=== PATIENT | female | born 1940 | race Caucasian/White ===

== ENCOUNTER → 2017-11-10 | Outpatient (CLI) | payer MEDICARE ==
[2017-11-10 13:17] LABS: Hemoglobin 12.3 g/dL (12.0-16.0); Mean Corpuscular HGB CONC 33.2 g/dL (32.0-36.0); Mean Corpuscular Hemoglobin 28.2 pg (27.0-31.0); Mean Corpuscular Volume 84.9 fl (81.0-99.0); Mean Platelet Volume 8.2 fL (7.4-10.4); Platelet Count 186 thou/uL (130-400); RBC Distribution Width 15.3 % (11.5-14.5); Red Blood Cell (RBC) Count 4.38 mill/uL (4.20-5.40); White Blood Cell (WBC) Count 12.1 thou/uL (4.8-10.8)
[2017-11-10 13:20] LABS: INR-International Normal Ratio 1.1; PTT 26.7 SEC (22.9-36.1); Prothrombin Time 13.9 SEC (12.0-14.7)
[2017-11-10 13:39] LABS: ALT (SGPT) 17 U/L (8-55); AST (SGOT) 23 U/L (5-34); Albumin 4.2 g/dL (3.4-4.8); Alkaline Phosphatase 48 U/L (40-150); Anion Gap 11 mmol/L (10-20); BUN (Urea Nitrogen) 14 mg/dL (9.8-20.1); Bilirubin, Total 0.4 mg/dL (0.2-1.2); Calc. Creatinine Clearance 0 mL/min (70-130); Calcium 9.5 mg/dL (7.8-10.44); Carbon Dioxide 24 mmol/L (23-31); Chloride 107 mmol/L (98-107); Estimated GFR-MDRD 73; Globulin 2.5 g/dL (2.4-3.5); Glucose 196 mg/dL (83-110); Potassium 3.8 mmol/L (3.5-5.1); Protein, Total 6.7 g/dL (6.0-8.3); Sodium 138 mmol/L (136-145)
== END ==
LOC: LABBT 13:00
PROVIDERS: ATTEND Internal Medicine Cardiovascular Disease
DX: Z01.818 Encounter for other preprocedural examination (principal); I42.0 Dilated cardiomyopathy

== ENCOUNTER 2017-11-18 05:29 | Inpatient (IN) | payer MEDICARE ==
[2017-11-18] MEDS ORDERED: Lidocaine 1% (PF) 30 ML VIAL ONE (06:36)
[2017-11-18] MEDS ORDERED: Midazolam HCl 2 mg/2 ml Vial ONE (07:28)
[2017-11-18] MEDS ORDERED: Fentanyl 100 MCG/2 ML VIAL ONE (07:28)
[2017-11-18] MEDS ORDERED: Ezetimibe 10 MG TAB PO SCH (09:00)
[2017-11-18] MEDS ORDERED: Atorvastatin Calcium 40 MG TAB PO SCH (09:00)
[2017-11-18] MEDS ORDERED: Loratadine 10 MG TAB PO SCH (09:00)
[2017-11-18] MEDS ORDERED: Carvedilol 3.125 MG TAB PO SCH (09:00)
[2017-11-18] MEDS ORDERED: Diphenoxylate HCl/Atropine Tablet PO PRN (09:25)
[2017-11-18] MEDS ORDERED: NAPROXEN 220 MG PO PRN (09:31)
[2017-11-18] MEDS ORDERED: Acetaminophen/Codeine 30-300mg Tablet PO PRN ×2 (09:36)
[2017-11-18] MEDS ORDERED: Nitroglycerin 0.4 MG TAB (25 Tab Bottle) SL PRN (09:36)
[2017-11-18] MEDS ORDERED: traMADol HCl 50 MG TAB PO PRN (09:36)
[2017-11-18] MEDS ORDERED: Sodium Chloride 0.9% 1,000 ML IV SCH ×2 (09:45→12:45)
[2017-11-18 10:13] VITALS: BMI 29.8
[2017-11-18] MEDS ORDERED: Albumin 5% 500 ML ONE (11:57)
[2017-11-18] MEDS ORDERED: Communication Order-Pharmacy FS SCH (12:02)
[2017-11-18] MEDS ORDERED: Heparin 10,000 UNITS/1 ML VIAL 30,000 UNITS in Sodium Chloride 0.9% 1,000 ML FS SCH (12:15)
[2017-11-18] MEDS ORDERED: Mag-Al 1200 mg/1200 mg/30 ML UDCUP PO PRN (12:33)
[2017-11-18] MEDS ORDERED: Hetastarch 6% 500 ML 500 ML IVPB PRN (12:33)
[2017-11-18] MEDS ORDERED: Post-Op Insulin Drip Protocol IVPB ONE (12:33)
[2017-11-18] MEDS ORDERED: Acetaminophen 325 MG TAB PO PRN (12:33)
[2017-11-18] MEDS ORDERED: Potassium Chloride 20 MEQ/100 ML PREMIX BAG IVPB PRN (12:33)
[2017-11-18] MEDS ORDERED: Ondansetron HCl/PF 4 MG/2 ML Vial IVP PRN (12:33)
[2017-11-18] MEDS ORDERED: Bisacodyl 5 MG TAB PO PRN (12:33)
[2017-11-18] MEDS ORDERED: HYDROcodone/Acetaminophen 5/325 mg Tablet PO PRN ×2 (12:33)
[2017-11-18] MEDS ORDERED: Guaifenesin DM 100-10/5 ML UDCUP PO PRN (12:33)
[2017-11-18] MEDS ORDERED: hydrALAZINE 20 MG/ML VIAL SLOW IVP PRN (12:33)
[2017-11-18] MEDS ORDERED: Bisacodyl 10 MG SUPP PR PRN (12:33)
[2017-11-18] MEDS ORDERED: Fentanyl 100 MCG/2 ML VIAL SLOW IVP PRN ×2 (12:33)
[2017-11-18] MEDS ORDERED: Promethazine HCl 25 MG/ML VIAL IM PRN (12:33)
[2017-11-18] MEDS ORDERED: Nitroglycerin 50 MG/250 ML BOT 250 ML IVPB PRN (12:33)
[2017-11-18] MEDS ORDERED: Norepinephrine 8 MG/0.9% NS 250 ML IVPB PRN (12:33)
[2017-11-18 12:34] VITALS: BP 144/71; TEMP 98.2
[2017-11-18] MEDS ORDERED: CEFAZOLIN/Water 2 GM/20 ML SYRINGE ONE (12:52)
--- NOTE | 2017-11-18 12:54 | CON ---
DATE OF CONSULTATION: 11/18/2017 REQUESTING PHYSICIAN: Dr. Burns. PRIMARY CARE PHYSICIAN: Dr. Ann Mancilla. CHIEF COMPLAINT: Abnormal EKG. HISTORY OF PRESENT ILLNESS: The patient is a 77-year-old diabetic woman with a longstanding history of left bundle branch block on her EKG, to the point that she carries copies of her EKG with her in h er purse. She has been having problems with her left shoulder and was found to have a rotator cuff t ear and she was referred to Dr. Burns for a preoperative evaluation prior to repair of rotator cuff. Stress testing showed anteroapical ischemia and decreased LV function with a stress EF of around 38 %. Echocardiography corroborated her mildly decreased LV function. Cardiac catheterization today aaron ows a left dominant system with a high grade complex lesion in the proximal LAD with involvement of a diagonal that comes off at that level. She has some ulceration in her left main and some haziness i n it, but there does not appear to be any compromise of the left main per se or of the dominant circu mflex system. LVEF is around 50% with an LVEDP of 5. Aortic pressure was 157/51 with a mean pressur e of 93. In retrospect, the patient says for a little over a year, she has been having decreasing ex ercise tolerance and that she normally walks for exercise. A year or two ago, she regularly walked 3 laps around the field at her house and over that period of time, she has gradually gotten to where s he now is not able to do any walking at all simply because she is too tired. When she was still walk ing the field, she said that she would stop with her legs giving out on her and feeling quite heavy. She denies any chest pain per se, any nausea, diaphoresis or shortness of breath. PAST MEDICAL HISTORY: Significant for her arthritis and diabetes. MEDICATIONS: She was recently been started on Coreg 3.125 mg a day and Lipitor 40 mg at bedtime. Aaron larson also takes metformin 1000 mg b.i.d., Glipizide 1.25 mg a day, Synthroid 75 mcg a day, Prilosec 20 m g a day, ezetimibe 10 mg a day, Zyrtec 10 mg b.i.d. and p.r.n. Naprosyn. ALLERGIES: She reports allergies to VALIUM, SULFONAMIDES, MOBIC and TOMATOES, all of which cause hiv es. FAMILY HISTORY: Notable for hypercholesterolemia in multiple family members. REVIEW OF SYSTEMS: Negative for any transient eye, speech, facial or extremity symptoms to suggest T IA. She has no focal claudication symptoms. She does have low back pain associated with some of her episodes of her legs giving out when she walks. She denies any orthopnea or any dependent edema. PHYSICAL EXAMINATION: GENERAL: She is in no distress. Height is 5 foot 2, weight 163 pounds. VITAL SIGNS: Heart rate 67, blood pressure 152/62, temperature is 98.0, room air O2 sats are 92%. HEENT: She has no xanthelasma. NECK: No JVD. She perhaps has some extremely soft carotid bruits. CHEST: Clear to auscultation. CARDIOVASCULAR: She has a regular rate and rhythm without any murmur or gallop. ABDOMEN: Soft, nontender, without organomegaly, masses or bruits. EXTREMITIES: She has palpable radial, femoral, and dorsalis pedis pulses. She has no femoral bruits . She has no clubbing, cyanosis or edema. NEUROLOGIC: Grossly nonfocal. LABORATORY DATA: Shows hemoglobin of 12.3, white count of 12.1, platelets 186,000. PT is 13.9 with an INR of 1.1 and PTT is 26.7. She has normal electrolytes. Glucose is 196, BUN 14, creatinine 0.77 . Albumin is 4.2. Liver functions tests were normal. Cardiac catheterization shows a left dominant system with a little bit of ulceration in her left main without any left main stenosis. She has abo ut 70%-80% proximal LAD lesion that extends across the level of the first septal customer care associate and about a 90% lesion in the ostium of a diagonal that comes off at about that same level. IMPRESSION AND PLAN: Proximal complex LAD disease involving a diagonal. We will plan in a diabetic who in retrospect has been having decreasing exercise tolerance for about a year or year and a half. We will plan on surgical revascularization.
[2017-11-18] MEDS ORDERED: Fentanyl 250 MCG/5 ML VIAL ONE (13:08)
[2017-11-18 13:25] LABS: INR-International Normal Ratio 1.1; PTT 25.8 SEC (22.9-36.1); Prothrombin Time 14.4 SEC (12.0-14.7)
[2017-11-18 13:27] LABS: Hemoglobin 12.4 g/dL (12.0-16.0); Mean Corpuscular HGB CONC 32.7 g/dL (32.0-36.0); Mean Corpuscular Hemoglobin 27.9 pg (27.0-31.0); Mean Corpuscular Volume 85.4 fl (81.0-99.0); Mean Platelet Volume 8.1 fL (7.4-10.4); Platelet Count 185 thou/uL (130-400); Red Blood Cell (RBC) Count 4.43 mill/uL (4.20-5.40); White Blood Cell (WBC) Count 11.1 thou/uL (4.8-10.8)
[2017-11-18] MEDS ORDERED: DOBUTamine 500 mg/250 ml 250 ML IVPB SCH (13:30)
[2017-11-18 13:34] LABS: Hemoglobin A1c 5.8 % (4.0-6.0)
[2017-11-18 13:43] LABS: Anion Gap 12 mmol/L (10-20); BUN (Urea Nitrogen) 9 mg/dL (9.8-20.1); Calc. Creatinine Clearance 80 mL/min (70-130); Calcium 9.1 mg/dL (7.8-10.44); Carbon Dioxide 25 mmol/L (23-31); Chloride 109 mmol/L (98-107); Estimated GFR-MDRD 80; Glucose 121 mg/dL (83-110); Potassium 3.9 mmol/L (3.5-5.1); Sodium 142 mmol/L (136-145)
[2017-11-18 13:50] LABS: Lymphocytes 69 % (21-51); MDiff Complete? YES; Monocytes 6 % (0-10); Neutrophil 25 % (42-75); PLT Morphology Comment Appears Adequate
--- NOTE | 2017-11-18 14:24 | RAD ---
CHEST 1 VIEW: HISTORY: Chest pain. COMPARISON: 08/20/14. FINDINGS: Cardiac silhouette magnified by projection and upper limits of normal in size. Pulmonary vasculature are unremarkable. Mediastinum midline with aortic calcification. No lobar consolidation or evidenc e of pneumothorax. IMPRESSION: No active cardiopulmonary abnormalities are demonstrated. POS: [facility]
[2017-11-18] MEDS ORDERED: Iopamidol 370 76% 100 ML VIAL ONE (15:55)
[2017-11-18] MEDS ORDERED: metFORMIN 500 MG TAB PO SCH (21:00)
[2017-11-18] MEDS ORDERED: Famotidine/PF 20 mg/2ml Vial SLOW IVP SCH (21:00)
[2017-11-19] MEDS ORDERED: Levothyroxine Sodium 75 MCG TAB PO SCH (06:00)
[2017-11-19] MEDS ORDERED: Enoxaparin Sodium 30 MG/0.3 ML SYRINGE SC SCH (09:00)
[2017-11-19] MEDS ORDERED: Aspirin 325 MG TAB PO SCH (09:00)
== END 2017-11-18 16:32 | disposition home or self-care (01) | DRG 287 ==
LOC: CCL 05:29 → 2SE 09:54 → CCU 13:27 → 2SE 15:45
PROVIDERS: ADMIT Internal Medicine Cardiovascular Disease; ATTEND Internal Medicine Cardiovascular Disease
PROC: 4A023N7 Measurement of Cardiac Sampling and Pressure, Left Heart, Percutaneous Approach (ICD-10-PCS; principal; 2017-11-18)
PROC: B2111ZZ Fluoroscopy of Multiple Coronary Arteries using Low Osmolar Contrast (ICD-10-PCS; 2017-11-18)
DX: I25.10 Atherosclerotic heart disease of native coronary artery without angina pectoris (principal); I42.0 Dilated cardiomyopathy; M19.90 Unspecified osteoarthritis, unspecified site; I44.7 Left bundle-branch block, unspecified; E11.9 Type 2 diabetes mellitus without complications; Z88.5 Allergy status to narcotic agent; Z88.2 Allergy status to sulfonamides
CPT/HCPCS: 36415; 36416; 71045; 80048; 83036; 85025; 85610; 85730; 86850; 86870; 86900; 86901; 86905; 93458; 99152; 99153; C1769; J1250; J1642; J1644; J2001; J2250; J3010; J7050; J7070; P9045; S0028

== ENCOUNTER 2017-11-22 09:30 | Inpatient (IN) | payer MEDICARE ==
[2017-11-23] MEDS ORDERED: Albumin 5% 500 ML ONE (06:24)
[2017-11-23] MEDS ORDERED: Fentanyl 100 MCG/2 ML VIAL ONE (06:33)
[2017-11-23] MEDS ORDERED: Midazolam HCl 5 mg/5 ml Vial ONE (06:33)
[2017-11-23] MEDS ORDERED: Dexmedetomidine 200 MCG/2 ML VIAL ONE (06:34)
[2017-11-23] MEDS ORDERED: Vecuronium 10 MG VIAL ONE ×2 (06:34→12:41)
[2017-11-23] MEDS ORDERED: CEFAZOLIN/Water 2 GM/20 ML SYRINGE ONE (06:38)
[2017-11-23] MEDS ORDERED: Heparin 10,000 UNITS/1 ML VIAL 30,000 UNITS in Sodium Chloride 0.9% 1,000 ML FS SCH (06:45)
[2017-11-23] MEDS ORDERED: Fentanyl 100 MCG/2 ML VIAL SLOW IVP PRN (07:45)
[2017-11-23] MEDS ORDERED: Bisacodyl 10 MG SUPP PR PRN (07:45)
[2017-11-23] MEDS ORDERED: Hetastarch 6% 500 ML 500 ML IVPB PRN (07:45)
[2017-11-23] MEDS ORDERED: Promethazine HCl 25 MG/ML VIAL IM PRN (07:45)
[2017-11-23] MEDS ORDERED: Nitroglycerin 50 MG/250 ML BOT 250 ML IVPB PRN (07:45)
[2017-11-23] MEDS ORDERED: Norepinephrine 8 MG/0.9% NS 250 ML IVPB PRN (07:45)
[2017-11-23] MEDS ORDERED: Acetaminophen 325 MG TAB PO PRN (07:45)
[2017-11-23] MEDS ORDERED: Mag-Al 1200 mg/1200 mg/30 ML UDCUP PO PRN (07:45)
[2017-11-23] MEDS ORDERED: Potassium Chloride 20 MEQ/100 ML PREMIX BAG IVPB PRN (07:45)
[2017-11-23] MEDS ORDERED: Ondansetron HCl/PF 4 MG/2 ML Vial IVP PRN (07:45)
[2017-11-23] MEDS ORDERED: hydrALAZINE 20 MG/ML VIAL SLOW IVP PRN (07:45)
[2017-11-23] MEDS ORDERED: Guaifenesin DM 100-10/5 ML UDCUP PO PRN (07:45)
[2017-11-23] MEDS ORDERED: Bisacodyl 5 MG TAB PO PRN (07:45)
[2017-11-23] MEDS ORDERED: Post-Op Insulin Drip Protocol IVPB ONE (07:45)
[2017-11-23] MEDS ORDERED: Loratadine 10 MG TAB PO PRN (07:49)
[2017-11-23] MEDS ORDERED: Insulin Regular 300 UNITS/3 ML VIAL ONE (07:59)
[2017-11-23] MEDS ORDERED: Dextrose 50% Abboject 50 ML SYRINGE SLOW IVP PRN (08:43)
[2017-11-23] MEDS ORDERED: Dextrose 5% in Water 1,000 ML IV PRN (08:43)
[2017-11-23] MEDS ORDERED: Insulin Regular 300 UNITS/3 ML VIAL SC PRN (08:43)
[2017-11-23] MEDS ORDERED: Aspirin 325 MG TAB PO SCH (09:00)
[2017-11-23] MEDS: Sodium Chloride 0.9% 1,000 ML IV SCH (12:38)
[2017-11-23] MEDS ORDERED: Papaverine 60 MG/2 ML VIAL ONE (12:41)
[2017-11-23] MEDS ORDERED: Glycopyrrolate 0.2 MG/ML 5 ML SYRINGE ONE (12:41)
[2017-11-23] MEDS ORDERED: Nitroglycerin 50 MG/250 ML BOT ONE (12:41)
[2017-11-23] MEDS ORDERED: ePHEDrine/0.9% NaCl/PF SYRINGE 50 mg/10 ml ONE (12:41)
[2017-11-23] MEDS ORDERED: PHENYLEPHRINE-NS 100 MCG/ML 10 ML SYRINGE ONE (12:41)
[2017-11-23] MEDS ORDERED: Heparin 5,000 UNITS/ML VIAL ONE (12:41)
[2017-11-23] MEDS ORDERED: Heparin 30,000 units/30 ml VIAL ONE ×2 (12:41→14:00)
[2017-11-23] MEDS ORDERED: Lidocaine 2% PF 100 mg/5 ml Syringe ONE ×2 (12:41→14:00)
[2017-11-23 12:45] LABS: Actual Bicarbonate (HCO3a) 21.1 mEq/L (22-28); Base Excess (BEa) -2.7 mEq/L (-2.0 to +3.0); CO2 Tension 32.9 mmHg (35.0-45.0); pH, Arterial 7.43 (7.35-7.45)
[2017-11-23 12:46] LABS: ALV-art Gradient 274.475 (0-20); Calcium, Ionized 1.2 mmol/L (1.12-1.30); Puncture Site ALINE
[2017-11-23 12:54] LABS: INR-International Normal Ratio 1.4
[2017-11-23 12:55] LABS: Hemoglobin 9.7 g/dL (12.0-16.0); Mean Corpuscular HGB CONC 33.1 g/dL (32.0-36.0); Mean Corpuscular Hemoglobin 27.9 pg (27.0-31.0); Mean Corpuscular Volume 84.2 fl (81.0-99.0); Mean Platelet Volume 7.7 fL (7.4-10.4); PTT 29.9 SEC (22.9-36.1); Platelet Count 132 thou/uL (130-400); RBC Distribution Width 14.7 % (11.5-14.5); Red Blood Cell (RBC) Count 3.48 mill/uL (4.20-5.40); White Blood Cell (WBC) Count 12.6 thou/uL (4.8-10.8)
--- NOTE | 2017-11-23 13:05 | OP ---
DATE OF PROCEDURE: 11/23/2017 PROCEDURE PERFORMED: Coronary artery bypass grafting x2 with left internal mammary artery to the LAD and reverse greater saphenous vein graft from the aorta to the first diagonal. PREOPERATIVE DIAGNOSIS: Coronary artery disease. POSTOPERATIVE DIAGNOSIS: Coronary artery disease. SURGEON: Josh Henderson M.D. ANESTHESIA: General endotracheal. INDICATIONS: The patient is a 67-year-old woman with an abnormal EKG of longstanding cardiac evaluat ion prior to surgical repair of rotator cuff injury included stress testing that showed anteroapical ischemia with a decreased stress ejection fraction. Cardiac catheterization demonstrated a complex l esion of the proximal LAD affecting diagonal that came off at the same level with an LVEF of around 5 0%. She is now taken to the operating room for coronary revascularization. FINDINGS: Pump time 64 minutes, crossclamp time 48 minutes (proximal vein graft anastomosis done und er cross clamp), good quality JUHI and greater saphenous vein. The LAD and diagonal were both about 2 mm. The diagonal had scattered plaque in it. The pericardium was closed. NARRATIVE REPORT: After informed consent was obtained, the patient was taken to the operating room a nd placed in supine position on the operating table. After the induction of general anesthesia, the patient's left upper chest was prepped and draped in sterile fashion. A triple-lumen central line ki t was used to place a left subclavian line by the Seldinger technique. All three ports easily aspira casey and flushed. The line was secured. Ultrasonographic mapping of the veins in her left thigh show ed they appeared to be of adequate size. The patient's torso, groins and lower extremities were then prepped and draped in sterile fashion. Saphenous vein was harvested from the proximal left thigh us ing the skin bridge technique, the harvest sites were closed in layers with subcutaneous and subcutic ular Vicryl. A median sternotomy was performed. The left JUHI was mobilized as a pedicle from the le zahida of the xiphoid to the level of the subclavian vein. Side branches were controlled with small Hem oclips. The internal mammary vein was ligated and divided near its confluence with the subclavian ve in while the exposure of the mammary had been done in extrapleural fashion. There were several viola tions of the pleura and was elected to place a 36 [place] chest tube in the left pleural space to enoch wiggins it rather than attempt repair of the very thin pleura. Upon heparinization, ligation and division of the mammary, there was good flow through it. Papaverine solution was instilled intraluminally. T kera mammary bed was inspected for hemostasis. The JUHI retractor was replaced with Liang retractor. T kera pericardium was opened and marsupialized. The aorta was palpated and it was soft. A double do ntric pursestring of 2-0 Ethibond was placed in the ascending aorta just beyond the pericardial refle ction as the patient had a relatively short intrapericardial aorta. A single pursestring was placed in the right atrial appendage. Aortic and venous cannula were inserted and secured by their pursestr ings. Cardiopulmonary bypass was instituted and the patient was systemically cooled. The heart was examined. The vessels to be bypass were identified. A longitudinal slit was made in the pericardium anterior to the left phrenic nerve through which the mammary could be passed. Without developing th e plane between the aorta and the pulmonary artery, an aortic crossclamp was applied and cardioplegia was administered through an aortic root needle. When arrest been achieved, attention was turned to the diagonal. It was opened with a [place] blade and Bimble scissors just distal to an island of pl aque. Saphenous vein was reversed and anastomosed there end-to-side with running 6-0 Prolene suture. The anastomosis was tested by flushing cold cardioplegia down the graft. Prior to completion of th e anastomosis, the heel and the toe were probed 1.5 mm probe easily passed in both directions. Atten tion was then turned to the LAD. It was exposed and opened distally and the mammary was anastomosed it with running 7-0 Prolene. The pedicle was tacked to the epicardium. Cardioplegia was administere d through the root needle to help distend the aorta and then an aortotomy was made with a scalpel and punch. The diagonal graft was distended, oriented, trimmed to length and spatulated. It was anasto mosed to that aortotomy end-to-side with running Prolene. With that suture line frustrated, the florinda ent was placed in Trendelenburg. The bulldog was removed from the mammary pedicle and cardioplegia w as administered through the aortic root needle to help flush the aortic root of air. The suture line was secured and the proximal anastomosis marked with a small Hemoclip. With the root needle back on suction, the aortic crossclamp was removed. The vein graft was deaired and the bulldog removed from it. Anastomoses were inspected for hemostasis. A posterior pericardial drain was brought out throu gh separate incisions and secured with suture. Right atrial and right ventricular temporary epicardi al pacing wires were placed. The patient was then easily from cardiopulmonary bypass. Aor tic and venous cannula removed and their pursestring secured. The root needle was removed in its ins ertion site secured with a Prolene pursestring. Protamine was administered. When hemostasis was magdalena quate, an anterior mediastinal drain was placed and the pericardium was easily closed over with runni ng Vicryl. The sternum was reapproximated with #7 stainless steel wires. The fascia was closed over the wires with heavy Vicryl. Subcutaneous tissue was irrigated and reapproximated and the skin was closed with Vicryl subcuticular suture. The wounds were dressed and the patient taken to the intensi ve care unit in stable condition.
[2017-11-23 13:07] LABS: Band 7 % (5-11); Lymphocytes 46 % (21-51); MDiff Complete? YES; Monocytes 1 % (0-10); Neutrophil 45 % (42-75); Reactive Lymphocytes 1 % (0-10)
[2017-11-23 13:09] LABS: Anion Gap 10 mmol/L (10-20); BUN (Urea Nitrogen) 12 mg/dL (9.8-20.1); Calc. Creatinine Clearance 85 mL/min (70-130); Calcium 8.2 mg/dL (7.8-10.44); Carbon Dioxide 23 mmol/L (23-31); Chloride 113 mmol/L (98-107); Estimated GFR-MDRD 87; Glucose 195 mg/dL (83-110); Potassium 4.1 mmol/L (3.5-5.1); Sodium 142 mmol/L (136-145)
[2017-11-23 13:15] VITALS: BMI 31.1
[2017-11-23] MEDS: Ezetimibe 10 MG TAB PO SCH (13:24)
[2017-11-23] MEDS: Ketorolac Tromethamine 30 MG/ML VIAL IVP SCH ×3 (13:28→23:51)
[2017-11-23] MEDS: Famotidine/PF 20 mg/2ml Vial SLOW IVP SCH ×2 (13:32→21:02)
--- NOTE | 2017-11-23 13:37 | RAD ---
CHEST 1 VIEW: HISTORY: A 77-year-old female for postop open heart. COMPARISON: 11/18/17. FINDINGS: NG tube, endotracheal tube, and left subclavian catheters are in place with multiple chest tubes. Mi ld vascular congestion. No significant pneumothorax. Patchy bibasilar parenchymal changes, probably some mild subsegmental atelectasis. IMPRESSION: Life support tubes in place. No pneumothorax or other significant acute process. Continued short-te rm followup. POS: [facility]
[2017-11-23] MEDS ORDERED: Protamine Sulfate 250 MG/25 ML VIAL ONE (14:00)
[2017-11-23] MEDS ORDERED: Calcium Chloride 1 GM/10 ML Abboject SYRINGE ONE (14:00)
[2017-11-23] MEDS ORDERED: Potassium Chlo 10 mEq/5 ml Syr ONE (14:00)
[2017-11-23] MEDS ORDERED: Mannitol 12.5 GM/50 ML ONE (14:00)
[2017-11-23] MEDS ORDERED: Sodium Bicarb 50 MEQ/50 ML VIAL ONE (14:00)
--- NOTE | 2017-11-23 16:03 | EKG ---
Test Reason : POST CABG Blood Pressure : / mmHG Vent. Rate : 084 BPM Atrial Rate : 084 BPM P-R Int : 196 ms QRS Dur : 148 ms QT Int : 462 ms P-R-T Axes : 073 -32 124 degrees QTc Int : 545 ms Normal sinus rhythm Left axis deviation Left bundle branch block Abnormal ECG When compared with ECG of 28-APR-2015 13:24, Significant changes have occurred Confirmed by CELENA RUST ([id number]) on 11/23/2017 4:03:08 PM Referred By: JARON Confirmed By:CELENA RUST
[2017-11-23 16:44] LABS: Actual Bicarbonate (HCO3a) 21.7 mEq/L (22-28); Base Excess (BEa) -3.1 mEq/L (-2.0 to +3.0); CO2 Tension 37.8 mmHg (35.0-45.0); Calcium, Ionized 1.2 mmol/L (1.12-1.30); Hemoglobin (Hb) 8.9 g/dL (12.0-16.0); O2 Tension (PaO2) 145.2 mmHg (> 70.0); pH, Arterial 7.38 (7.35-7.45)
[2017-11-23] MEDS: Fentanyl 100 MCG/2 ML VIAL SLOW IVP PRN ×2 (16:44→23:52)
[2017-11-23 16:45] LABS: Puncture Site ALINE
[2017-11-23 16:54] LABS: Hemoglobin 9.3 g/dL (12.0-16.0)
[2017-11-23 17:12] LABS: Potassium 4.1 mmol/L (3.5-5.1)
--- NOTE | 2017-11-23 19:21 | CON ---
DATE OF CONSULTATION: 11/23/2017 REASON FOR CONSULTATION: Status post CABG. HISTORY OF PRESENT ILLNESS: Ms. Hoskins is a very pleasant 77-year-old white female well known to mys elf who comes to the hospital for planned bypass grafting. She was seen originally in the office for a preoperative evaluation for a shoulder surgery. Echocardiogram and stress testing were done and s howed that she had a reduced EF at about 38% and had a large anterior ischemia on MPI. She underwent left heart catheterization and was found to have a very complex LAD diagonal lesion. She was referr ed for coronary artery grafting and she underwent bypass x2 with a ROSS to the LAD and a vein to the first diagonal. She did well postoperatively. She is already extubated and doing better. She had s ome nausea which has improved with Phenergan. PAST MEDICAL HISTORY: 1. Coronary artery disease as above. 2. Hyperlipidemia. 3. Type 2 diabetes. 4. Hypothyroidism. PAST SURGICAL HISTORY: 1. Bilateral tubal ligation. 2. Foot surgery. 3. CABG x2 as above. ALLERGIES: DIAZEPAM and TELMISARTAN. FAMILY HISTORY: Noncontributory. SOCIAL HISTORY: No alcohol, tobacco or drugs. REVIEW OF SYSTEMS: A 12-point review of systems was done and is all negative unless stated in histor y of present illness. PHYSICAL EXAMINATION: VITAL SIGNS: Temperature 96.4, pulse 82, respiration rate 16, satting 99% on room air, blood pressur e 153/60. GENERAL: Awake, alert, oriented x3, in no distress. Just in pain. HEENT: Normocephalic, atraumatic. NECK: Supple. LUNGS: Lungs are clear. CARDIOVASCULAR: S1, S2, no S3, S4, no murmurs, no rubs. ABDOMEN: Soft, positive bowel sounds. EXTREMITIES: No edema. SKIN: Warm and dry. LABORATORY WORK: Reviewed. ASSESSMENT AND PLAN: 1. Coronary artery disease. 2. Status post coronary artery bypass graft x2. PLAN: 1. Continue postoperative care. 2. Aspirin and statin for life. 3. We will add beta neida and LUCIUS inhibitor once blood pressure allows seems to get this will happ en sooner rather than later. Thank you for letting us participate in the care of your patient. We will follow.
[2017-11-23] MEDS: Atorvastatin Calcium 40 MG TAB PO SCH (21:19)
[2017-11-24] MEDS: HYDROcodone/Acetaminophen 5/325 mg Tablet PO PRN ×5 (02:24→23:37)
[2017-11-24] MEDS: Sodium Chloride 0.9% 1,000 ML IV SCH (02:26)
[2017-11-24 05:08] LABS: Anion Gap 7 mmol/L (10-20); BUN (Urea Nitrogen) 15 mg/dL (9.8-20.1); Calc. Creatinine Clearance 86 mL/min (70-130); Calcium 7.9 mg/dL (7.8-10.44); Carbon Dioxide 26 mmol/L (23-31); Chloride 114 mmol/L (98-107); Estimated GFR-MDRD 83; Glucose 120 mg/dL (83-110); Potassium 3.9 mmol/L (3.5-5.1); Sodium 143 mmol/L (136-145)
[2017-11-24 06:08] LABS: Band 14 % (5-11); Hemoglobin 8.7 g/dL (12.0-16.0); Lymphocytes 41 % (21-51); MDiff Complete? YES; Mean Corpuscular HGB CONC 33.7 g/dL (32.0-36.0); Mean Corpuscular Hemoglobin 29.2 pg (27.0-31.0); Mean Corpuscular Volume 86.6 fl (81.0-99.0); Mean Platelet Volume 8.2 fL (7.4-10.4); Metamyelocyte 1 % (0-0); Monocytes 6 % (0-10); Neutrophil 37 % (42-75); Nucleated RBC 1 % (0); PLT Morphology Comment Appears Adequate; Platelet Count 143 thou/uL (130-400); Reactive Lymphocytes 1 % (0-10); Red Blood Cell (RBC) Count 2.99 mill/uL (4.20-5.40); White Blood Cell (WBC) Count 13.5 thou/uL (4.8-10.8)
[2017-11-24] MEDS: Ketorolac Tromethamine 30 MG/ML VIAL IVP SCH (06:08)
[2017-11-24] MEDS: Levothyroxine Sodium 75 MCG TAB PO SCH (06:09)
[2017-11-24] MEDS ORDERED: Artificial Tears 18 DROP/0.9 ML EA EYE PRN (07:40)
[2017-11-24] MEDS ORDERED: Nitroglycerin 0.4 MG TAB (25 Tab Bottle) SL PRN (07:40)
[2017-11-24] MEDS ORDERED: Mag-Al 1200 mg/1200 mg/30 ML UDCUP PO PRN (07:40)
[2017-11-24] MEDS ORDERED: Mineral Oil ENEMA PR PRN (07:40)
[2017-11-24] MEDS ORDERED: Bisacodyl 5 MG TAB PO PRN (07:40)
[2017-11-24] MEDS ORDERED: Guaifenesin DM 100-10/5 ML UDCUP PO PRN (07:40)
[2017-11-24] MEDS ORDERED: Bisacodyl 10 MG SUPP PR PRN (07:40)
[2017-11-24] MEDS ORDERED: diphenhydrAMINE 25 MG CAP PO PRN (07:40)
[2017-11-24] MEDS ORDERED: Zolpidem Tartrate 5 MG TAB PO PRN (07:40)
--- NOTE | 2017-11-24 08:08 | RAD ---
PORTABLE SEMIUPRIGHT FRONTAL CHEST RADIOGRAPH: DATE: 11/24/17. COMPARISON: 11/23/17. HISTORY: Status post open heart surgery. FINDINGS: There is a small new pneumothorax in the left lung apex. There is a left-sided vascular catheter, di stal tip overlying the expected location of the cavoatrial junction. Surgical drainage catheters ove rlie the midline mediastinum inferiorly in the hemithorax, stable. Endotracheal tube and nasogastric tube have been removed since the prior exam. Epicardial pacing leads are present. There is partial opacification of the medial left lung base suggesting infiltrate or volume loss, sta ble. IMPRESSION: Interval removal of nasogastric tube and endotracheal tube. New tiny pneumothorax in left lung apex. POS: [facility]
[2017-11-24] MEDS: Aspirin 325 mg Enteric Coated Tablet PO SCH (08:23)
[2017-11-24] MEDS: Potassium Chloride 20 MEQ TAB PO SCH ×2 (08:23→16:30)
[2017-11-24] MEDS: Ezetimibe 10 MG TAB PO SCH (08:24)
[2017-11-24] MEDS: Furosemide 40 MG TAB PO SCH ×2 (08:24→14:26)
[2017-11-24] MEDS ORDERED: Furosemide 20 MG TAB PO SCH (09:00)
[2017-11-24] MEDS: Famotidine/PF 20 mg/2ml Vial SLOW IVP SCH (09:25)
[2017-11-24] MEDS: Iron Polysaccharides Complex 150 MG CAP PO SCH ×2 (09:26→19:51)
[2017-11-24] MEDS: Insulin Regular 300 UNITS/3 ML VIAL SC PRN (11:50)
--- NOTE | 2017-11-24 14:08 | PDOC.CTH ---
Cardiology Progress Note - Subjective She is doing well. She has soreness on her chest likely from her chest tubes. - Objective Vital Signs Temp Pulse Pulse Pulse Resp BP BP 11/24/17 12:00 98 F 87 16 11/24/17 10:10 97.8 F 94 17 11/24/17 08:50 93 91 107/46 L 101/39 L 11/24/17 08:00 97.8 F 88 18 11/24/17 05:00 99.5 F BP Pulse Ox Pulse Ox Pulse Ox 11/24/17 12:00 111/55 L 95 11/24/17 10:10 124/58 L 94 L 11/24/17 08:50 91 L 94 L 11/24/17 08:00 93 L 11/24/17 05:00 Weight 172 lb 9.951 oz 11/23/17 11/24/17 11/25/17 06:59 06:59 06:59 Intake Total 1958.7 617.5 Output Total 1530 95 Balance 428.7 522.5 - Physical Examination General/Neuro: alert & oriented x3, NAD Neck: no JVD present Lungs: unlabored respirations Heart: RRR, other: (3 component rub.) Abdomen: NT/ND Extremities: + edema B (1+) - Telemetry Telemetry Rhythm: NSR, PVC's - Labs Result Diagrams: 11/24/17 04:49 11/24/17 04:49 - Assessment/Plan 1. Multivessel CAD. 2. S/P CABG x 2 ROSS to LAD, SVG to diagonal 3. HTN PLAN: - Aspirin/statin for life - BB and ACEI once BP allows, currently bordeline low. - Continue PT as tolerated. - Incentive spirometer.
[2017-11-24] MEDS: Famotidine 20 MG TAB PO SCH (19:50)
[2017-11-24] MEDS: Atorvastatin Calcium 40 MG TAB PO SCH (19:50)
[2017-11-25] MEDS: Levothyroxine Sodium 75 MCG TAB PO SCH (05:09)
[2017-11-25] MEDS: HYDROcodone/Acetaminophen 5/325 mg Tablet PO PRN ×3 (05:09→19:25)
[2017-11-25 05:49] LABS: Anion Gap 11 mmol/L (10-20); BUN (Urea Nitrogen) 15 mg/dL (9.8-20.1); Calc. Creatinine Clearance 70 mL/min (70-130); Calcium 8.2 mg/dL (7.8-10.44); Carbon Dioxide 24 mmol/L (23-31); Chloride 109 mmol/L (98-107); Estimated GFR-MDRD 69; Glucose 147 mg/dL (83-110); Potassium 4.5 mmol/L (3.5-5.1); Sodium 139 mmol/L (136-145)
[2017-11-25 06:02] LABS: Band 3 % (5-11); Hemoglobin 8.6 g/dL (12.0-16.0); Lymphocytes 55 % (21-51); MDiff Complete? YES; Mean Corpuscular HGB CONC 32.8 g/dL (32.0-36.0); Mean Corpuscular Hemoglobin 28.6 pg (27.0-31.0); Mean Corpuscular Volume 87.2 fl (81.0-99.0); Mean Platelet Volume 7.8 fL (7.4-10.4); Monocytes 3 % (0-10); Neutrophil 39 % (42-75); PLT Morphology Comment Appears Adequate; Platelet Count 154 thou/uL (130-400); RBC Distribution Width 15.1 % (11.5-14.5); White Blood Cell (WBC) Count 15.2 thou/uL (4.8-10.8)
--- NOTE | 2017-11-25 07:57 | RAD ---
UPRIGHT PORTABLE CHEST 1 VIEW: HISTORY: Postop open heart followup. COMPARISON: 11/24/17. FINDINGS: Chest tubes and left subclavian catheter in place. Minimal patchy parenchymal changes in the pacheco, s table. There is still a question of a tiny apical pneumothorax, although this area is somewhat obscu red on this study. IMPRESSION: Stable postoperative changes. Possible tiny residual left apical pneumothorax. Stable vascular ana estion and bilateral postoperative changes. POS: [facility]
[2017-11-25] MEDS: Famotidine 20 MG TAB PO SCH ×2 (08:54→19:25)
[2017-11-25] MEDS: Ezetimibe 10 MG TAB PO SCH (08:54)
[2017-11-25] MEDS: Aspirin 325 mg Enteric Coated Tablet PO SCH (08:55)
[2017-11-25] MEDS: Furosemide 40 MG TAB PO SCH ×2 (08:55→14:22)
[2017-11-25] MEDS: Potassium Chloride 20 MEQ TAB PO SCH ×2 (08:55→17:22)
[2017-11-25] MEDS: Iron Polysaccharides Complex 150 MG CAP PO SCH ×2 (08:56→19:25)
[2017-11-25] MEDS: Insulin Regular 300 UNITS/3 ML VIAL SC PRN ×2 (09:05→17:22)
[2017-11-25] MEDS ORDERED: Amiodarone HCl 150 MG in Dextrose 5% in Water 100 ML IVPB SCH (10:30)
[2017-11-25] MEDS ORDERED: Amiodarone HCl 450 MG in Dextrose 5% in Water 250 ML IVPB SCH (10:30)
[2017-11-25 11:02] LABS: ALT (SGPT) 11 U/L (8-55); AST (SGOT) 26 U/L (5-34); Albumin 3.5 g/dL (3.4-4.8); Alkaline Phosphatase 50 U/L (40-150); Bilirubin, Direct 0.3 mg/dL (0.1-0.3); Bilirubin, Total 0.8 mg/dL (0.2-1.2); Magnesium 2.1 mg/dL (1.6-2.6); Protein, Total 5.6 g/dL (6.0-8.3)
--- NOTE | 2017-11-25 13:13 | PDOC.CTH ---
Cardiology Progress Note - Subjective She is doing wel. Her chest tubes are coming out today. She went into afib RVR in the 140's and converted after Amio drip started. - Objective Vital Signs Temp Pulse Resp BP Pulse Ox 11/25/17 11:15 98.2 F 104 H 18 172/85 H 11/25/17 07:22 97.8 F 96 16 141/63 H 96 11/25/17 04:00 98.6 F 108 H 14 146/66 H 95 Weight 162 lb 8 oz 11/24/17 11/25/17 11/26/17 06:59 06:59 06:59 Intake Total 1958.7 1107.5 Output Total 1530 1295 Balance 428.7 -187.5 - Physical Examination General/Neuro: alert & oriented x3, NAD Neck: no JVD present Lungs: CTA, unlabored respirations Heart: RRR Abdomen: NT/ND Extremities: + edema B (1+) - Telemetry Telemetry Rhythm: Afib ->NSR - Labs Result Diagrams: 11/25/17 04:46 11/25/17 04:46 - Assessment/Plan 1. Multivessel CAD. 2. S/P CABG x 2 ROSS to LAD, SVG to diagonal 3. HTN 4. Post op afib PLAN: - Aspirin/statin for life - Will start BB and ACEI today. - Continue PT as tolerated. - Incentive spirometer. - Continue amiodarone drip for 24 hrs and switch to PO load tomorrow. Would continue amiodarone for a month after surgery. No anticoagulation unless she recurs after one week after surgery or if she maintains .
[2017-11-25] MEDS: Carvedilol 3.125 MG TAB PO SCH (17:23)
[2017-11-25] MEDS: Atorvastatin Calcium 40 MG TAB PO SCH (19:25)
[2017-11-26] MEDS: Levothyroxine Sodium 75 MCG TAB PO SCH (04:59)
[2017-11-26 05:34] LABS: Anion Gap 10 mmol/L (10-20); BUN (Urea Nitrogen) 13 mg/dL (9.8-20.1); Calc. Creatinine Clearance 84 mL/min (70-130); Calcium 8.1 mg/dL (7.8-10.44); Carbon Dioxide 28 mmol/L (23-31); Chloride 102 mmol/L (98-107); Estimated GFR-MDRD 80; Glucose 155 mg/dL (83-110); Potassium 4.3 mmol/L (3.5-5.1); Sodium 136 mmol/L (136-145)
[2017-11-26 06:09] LABS: Eosinophils 1 % (0-10); Hemoglobin 8.4 g/dL (12.0-16.0); Lymphocytes 51 % (21-51); MDiff Complete? YES; Mean Corpuscular HGB CONC 33.2 g/dL (32.0-36.0); Mean Corpuscular Hemoglobin 28.7 pg (27.0-31.0); Mean Corpuscular Volume 86.4 fl (81.0-99.0); Mean Platelet Volume 7.7 fL (7.4-10.4); Monocytes 5 % (0-10); Neutrophil 42 % (42-75); PLT Morphology Comment Appears Adequate; Platelet Count 156 thou/uL (130-400); RBC Distribution Width 14.7 % (11.5-14.5); RBC Morphology Normal; Reactive Lymphocytes 1 % (0-10); Red Blood Cell (RBC) Count 2.92 mill/uL (4.20-5.40); White Blood Cell (WBC) Count 12.5 thou/uL (4.8-10.8)
[2017-11-26] MEDS: Amiodarone 200 MG TAB PO SCH ×2 (07:30→21:00)
[2017-11-26] MEDS: Carvedilol 3.125 MG TAB PO SCH (07:30)
[2017-11-26] MEDS: Lisinopril 2.5 MG TAB PO SCH (07:31)
[2017-11-26] MEDS: Iron Polysaccharides Complex 150 MG CAP PO SCH ×2 (07:31→21:00)
[2017-11-26] MEDS: Famotidine 20 MG TAB PO SCH ×2 (07:31→21:00)
[2017-11-26] MEDS: Ezetimibe 10 MG TAB PO SCH (07:31)
[2017-11-26] MEDS: Aspirin 325 mg Enteric Coated Tablet PO SCH (07:31)
[2017-11-26] MEDS: Insulin Regular 300 UNITS/3 ML VIAL SC PRN (09:49)
[2017-11-26] MEDS ORDERED: Ondansetron HCl/PF 4 MG/2 ML Vial IVP PRN (10:29)
[2017-11-26] MEDS: Atorvastatin Calcium 40 MG TAB PO SCH (21:00)
[2017-11-27 05:50] LABS: Anion Gap 9 mmol/L (10-20); BUN (Urea Nitrogen) 15 mg/dL (9.8-20.1); Calc. Creatinine Clearance 80 mL/min (70-130); Calcium 8.2 mg/dL (7.8-10.44); Carbon Dioxide 28 mmol/L (23-31); Chloride 102 mmol/L (98-107); Estimated GFR-MDRD 77; Glucose 165 mg/dL (83-110); Potassium 4.2 mmol/L (3.5-5.1); Sodium 135 mmol/L (136-145)
[2017-11-27 06:07] LABS: Eosinophils 1 % (0-10); Hemoglobin 8.2 g/dL (12.0-16.0); Lymphocytes 58 % (21-51); MDiff Complete? YES; Mean Corpuscular HGB CONC 33.5 g/dL (32.0-36.0); Mean Corpuscular Hemoglobin 28.8 pg (27.0-31.0); Mean Platelet Volume 7.2 fL (7.4-10.4); Monocytes 4 % (0-10); Neutrophil 37 % (42-75); PLT Morphology Comment Appears Adequate; Platelet Count 188 thou/uL (130-400); RBC Distribution Width 14.6 % (11.5-14.5); Red Blood Cell (RBC) Count 2.83 mill/uL (4.20-5.40); White Blood Cell (WBC) Count 12.6 thou/uL (4.8-10.8)
[2017-11-27] MEDS: Levothyroxine Sodium 75 MCG TAB PO SCH (06:14)
[2017-11-27] MEDS: Aspirin 325 mg Enteric Coated Tablet PO SCH (07:46)
[2017-11-27] MEDS: Amiodarone 200 MG TAB PO SCH ×2 (07:46→21:40)
[2017-11-27] MEDS: Carvedilol 3.125 MG TAB PO SCH ×2 (07:46→16:28)
[2017-11-27] MEDS: Famotidine 20 MG TAB PO SCH ×2 (07:47→21:40)
[2017-11-27] MEDS: Lisinopril 2.5 MG TAB PO SCH (07:47)
[2017-11-27] MEDS: Iron Polysaccharides Complex 150 MG CAP PO SCH ×2 (07:47→21:41)
[2017-11-27] MEDS: Ezetimibe 10 MG TAB PO SCH (07:47)
[2017-11-27] MEDS: glyBURIDE 2.5 MG TAB PO SCH (11:19)
[2017-11-27] MEDS ORDERED: glyBURIDE 2.5 MG TAB PO SCH (12:00)
[2017-11-27] MEDS ORDERED: Loratadine 10 MG TAB PO SCH (21:00)
[2017-11-27] MEDS: Atorvastatin Calcium 40 MG TAB PO SCH (21:40)
[2017-11-28] MEDS: Levothyroxine Sodium 75 MCG TAB PO SCH (05:58)
[2017-11-28 06:12] LABS: Band 1 % (5-11); Eosinophils 1 % (0-10); Hemoglobin 8.1 g/dL (12.0-16.0); Lymphocytes 55 % (21-51); MDiff Complete? YES; Mean Corpuscular HGB CONC 33.2 g/dL (32.0-36.0); Mean Corpuscular Hemoglobin 28.4 pg (27.0-31.0); Mean Corpuscular Volume 85.5 fl (81.0-99.0); Mean Platelet Volume 7.2 fL (7.4-10.4); Metamyelocyte 1 % (0-0); Monocytes 4 % (0-10); Neutrophil 38 % (42-75); PLT Morphology Comment Appears Adequate; Platelet Count 221 thou/uL (130-400); RBC Distribution Width 14.7 % (11.5-14.5); Red Blood Cell (RBC) Count 2.84 mill/uL (4.20-5.40); White Blood Cell (WBC) Count 11.8 thou/uL (4.8-10.8)
[2017-11-28 06:24] LABS: Anion Gap 10 mmol/L (10-20); BUN (Urea Nitrogen) 11 mg/dL (9.8-20.1); Calc. Creatinine Clearance 88 mL/min (70-130); Calcium 8.4 mg/dL (7.8-10.44); Carbon Dioxide 28 mmol/L (23-31); Chloride 105 mmol/L (98-107); Estimated GFR-MDRD 86; Glucose 145 mg/dL (83-110); Potassium 3.8 mmol/L (3.5-5.1); Sodium 139 mmol/L (136-145)
[2017-11-28] MEDS: Amiodarone 200 MG TAB PO SCH (08:50)
[2017-11-28] MEDS: Aspirin 325 mg Enteric Coated Tablet PO SCH (08:50)
[2017-11-28] MEDS: Carvedilol 3.125 MG TAB PO SCH ×2 (08:50→17:30)
[2017-11-28] MEDS: Famotidine 20 MG TAB PO SCH (08:50)
[2017-11-28] MEDS: Lisinopril 2.5 MG TAB PO SCH (08:50)
[2017-11-28] MEDS: Iron Polysaccharides Complex 150 MG CAP PO SCH (08:50)
[2017-11-28] MEDS: Ezetimibe 10 MG TAB PO SCH (08:50)
[2017-11-28] MEDS: glyBURIDE 2.5 MG TAB PO SCH (11:26)
[2017-11-28 16:48] VITALS: BP 148/67; TEMP 98
[2017-11-28] MEDS ORDERED: Lisinopril 2.5 MG TAB PO SCH (21:00)
--- NOTE | 2017-11-29 08:58 | DIS ---
PRINCIPAL DIAGNOSIS: Coronary artery disease. SECONDARY DIAGNOSES: Present but not specifically addressed. Diabetes mellitus and left rotator cuf f injury. PROCEDURES PERFORMED: Coronary artery bypass grafting x2 with left internal mammary artery to the le ft anterior descending and reverse greater saphenous vein graft from the aorta to the diagonal on . HISTORY OF PRESENT ILLNESS AND HOSPITAL COURSE: The patient is a 77-year-old woman who had an abnorm al stress test that was part of a preoperative cardiac evaluation in anticipation of repairing left r otator cuff injury. Cardiac catheterization demonstrated complex high-grade proximal LAD diagonal di sease. In retrospect, she has been having some decreasing exercise tolerance, but no clear-cut angin a. She underwent surgical revascularization based largely upon the proximal and high-grade nature of her LAD diagonal disease and she did well postoperatively. On the morning of postoperative day #2, she went into atrial fibrillation, but converted with IV amiodarone and she was switched over to oral amiodarone. Her level of activity has gradually increased and she is now ready for discharge. She is to resume her Coreg 3.125 mg a day, lisinopril 2.5 mg a day has been added to her regimen as has a miodarone 400 mg b.i.d. She is to continue her Lipitor 40 mg at bedtime and she is on an aspirin tod ay. I will plan on seeing her in the office in roughly 2 weeks' time. Follow up with Dr. Grant fowler per him.
== END 2017-11-28 19:21 | disposition home health service (06) | DRG 236 ==
LOC: SURG A 11-23 05:34 → CCU 11-23 11:15 → 2NO 11-24 10:07
PROVIDERS: ADMIT Thoracic Surgery (Cardiothoracic Vascular Surgery); ATTEND Thoracic Surgery (Cardiothoracic Vascular Surgery)
PROC: 02100Z9 Bypass Coronary Artery, One Artery from Left Internal Mammary, Open Approach (ICD-10-PCS; principal; 2017-11-23)
PROC: 021009W Bypass Coronary Artery, One Artery from Aorta with Autologous Venous Tissue, Open Approach (ICD-10-PCS; 2017-11-23)
PROC: 06BQ0ZZ Excision of Left Saphenous Vein, Open Approach (ICD-10-PCS; 2017-11-23)
PROC: 5A1221Z Performance of Cardiac Output, Continuous (ICD-10-PCS; 2017-11-23)
DX: I25.10 Atherosclerotic heart disease of native coronary artery without angina pectoris (principal); E11.9 Type 2 diabetes mellitus without complications; E78.5 Hyperlipidemia, unspecified; E03.9 Hypothyroidism, unspecified; I48.91 Unspecified atrial fibrillation; Z88.2 Allergy status to sulfonamides; Z91.018 Allergy to other foods; Z88.8 Allergy status to other drugs, medicaments and biological substances; Z79.84 Long term (current) use of oral hypoglycemic drugs; Z79.899 Other long term (current) drug therapy
CPT/HCPCS: 36415; 36416; 36430; 71045; 80048; 80076; 82805; 83735; 84443; 85025; 85610; 85730; 86850; 86870; 86900; 86901; 86904; 86905; 86922; 93005; 93010; 93798; 94002; 94150; A4216; J0282; J1642; J1644; J1815; J1885; J2001; J2150; J2250; J2405; J2440; J2550; J2720; J3010; J3475; J7050; J7070; P9045; S0028

== ENCOUNTER 2017-11-22 11:36 | Outpatient (CLI) | payer MEDICARE | END 2017-11-22 11:37 | disposition home or self-care (01) | LOC: LABBT 11:36 | PROVIDERS: ATTEND Thoracic Surgery (Cardiothoracic Vascular Surgery) | DX: Z01.812 Encounter for preprocedural laboratory examination (principal); I25.10 Atherosclerotic heart disease of native coronary artery without angina pectoris | CPT/HCPCS: 36430; 86850; 86870; 86900; 86901; 86904; 86905; 86922 ==

== ENCOUNTER 2018-01-03 12:20 | Inpatient (IN) | payer MEDICARE ==
--- NOTE | 2018-01-03 13:36 | RAD ---
PORTABLE AP CHEST: Date: 01/03/18 HISTORY: Dyspnea and weakness. Shortness of breath with exertion. COMPARISON: 11/25/17. FINDINGS: Left-sided thoracostomy tube and left subclavian central venous catheters have been removed. There pratt s been interval improvement in aeration within the lungs bilaterally and lungs are clear on today's e xam. There is calcification of the mitral valve annulus. Cardiac silhouette and pulmonary vasculature are within normal limits. Postsurgical changes related to CABG are again seen. No other interval sarah nge. IMPRESSION: No acute cardiopulmonary process. POS: [facility]
[2018-01-03 13:45] LABS: Hemoglobin 10.9 g/dL (12.0-16.0); Mean Corpuscular Hemoglobin 26.7 pg (27.0-31.0); Mean Corpuscular Volume 83.3 fL (78.0-98.0); Mean Platelet Volume 6.8 fL (7.4-10.4); Platelet Count 314 thou/uL (130-400); RBC Distribution Width 14.8 % (11.5-14.5); Red Blood Cell (RBC) Count 4.08 mill/uL (4.20-5.40); White Blood Cell (WBC) Count 14.5 thou/uL (4.8-10.8)
[2018-01-03 14:02] LABS: INR-International Normal Ratio 1.1; PTT 29.3 SEC (22.9-36.1); Prothrombin Time 14.5 SEC (12.0-14.7)
[2018-01-03 14:04] LABS: ALT (SGPT) 16 U/L (8-55); AST (SGOT) 20 U/L (5-34); Albumin 3.4 g/dL (3.4-4.8); Alkaline Phosphatase 93 U/L (40-150); Anion Gap 16 mmol/L (10-20); BUN (Urea Nitrogen) 18 mg/dL (9.8-20.1); Bilirubin, Total 0.6 mg/dL (0.2-1.2); CK (CPK) 16 U/L (29-168); Calc. Creatinine Clearance 0 mL/min (70-130); Calcium 9.4 mg/dL (7.8-10.44); Carbon Dioxide 24 mmol/L (23-31); Chloride 103 mmol/L (98-107); Estimated GFR-MDRD 73; Glucose 158 mg/dL (83-110); Potassium 4.7 mmol/L (3.5-5.1); Protein, Total 6.4 g/dL (6.0-8.3); Sodium 138 mmol/L (136-145)
[2018-01-03 14:08] LABS: CKMB 0.8 ng/mL (0-6.6); Troponin I 0.031 ng/mL (< 0.028)
[2018-01-03 14:15] LABS: Acanthocytes SLIGHT = 1-5 cells (100X) (None Seen); Anisocytosis SLIGHT = 6-15 cells (100X) (0-5/hpf); Lymphocytes 42 % (21-51); MDiff Complete? YES; Monocytes 9 % (0-10); Neutrophil 48 % (42-75); Ovalocytes SLIGHT = 2-5 cells (100X) (0-1/hpf); PLT Morphology Comment Appears Adequate; Polychromasia SLIGHT = 2-3 cells (100X) (0-2/hpf); Reactive Lymphocytes 1 % (0-10); Tear Drops SLIGHT = 2-5 cells (100X) (0-1/hpf)
[2018-01-03] MEDS ORDERED: ISOVUE-370 76%-LOCM 1 ML ONE (14:51)
--- NOTE | 2018-01-03 15:28 | CT ---
CT ARTERIOGRAM CHEST WITH IV CONTRAST AND 3D MIP IMAGING: History: Chest pain, dyspnea. FINDINGS: Large cylindrical filling defects are present within pulmonary arteries to each lower lobe and right middle lobe, extending as far proximally as the right main pulmonary artery. There is calcification w ithin the arterial structures. Bovine origin of the great vessels at the aortic arch. Pulmonary hype rinflation. Mild atelectasis right lung base. No mediastinal adenopathy. Post-operative changes are a pparent. IMPRESSION: 1. Extensive bilateral pulmonary emboli with high clot burden. 2. COPD. 3. Atherosclerosis. Findings were called to Dr. Durham in the Emergency Department at 1504 hours. Code CR POS: [facility]
[2018-01-03] MEDS ORDERED: Enoxaparin Sodium 80 MG/0.8 ML SYRINGE ONE (15:47)
[2018-01-03 16:54] LABS: Troponin I 0.024 ng/mL (< 0.028)
[2018-01-03] MEDS ORDERED: Acetaminophen 325 MG TAB PO PRN (17:33)
[2018-01-03] MEDS ORDERED: Ondansetron ODT 4 MG TAB SL PRN (17:33)
[2018-01-03] MEDS ORDERED: Ondansetron HCl/PF 4 MG/2 ML Vial IVP PRN (17:33)
[2018-01-03 17:56] VITALS: BMI 27.6
[2018-01-03 20:02] LABS: Troponin I 0.037 ng/mL (< 0.028)
[2018-01-03] MEDS ORDERED: Dextrose 50% Abboject 50 ML SYRINGE SLOW IVP PRN (20:42)
[2018-01-03] MEDS ORDERED: Dextrose 5% in Water 1,000 ML IV PRN (20:42)
[2018-01-03] MEDS ORDERED: Insulin Regular 300 UNITS/3 ML VIAL SC PRN (20:42)
--- NOTE | 2018-01-03 21:11 | CON ---
DATE OF CONSULTATION: 01/03/2018 REASON FOR CONSULTATION: Pulmonary embolism. HISTORY OF PRESENT ILLNESS: Ms. Hoskins is a very pleasant 77-year-old white female, very well known to myself who comes to the hospital for increased shortness of breath. She had bypass surgery performed about 6 weeks ago. She was discharged from the hospital and the only complication she had was she went into postoperative atrial fibrillation. She was treated with amiodarone as she would have several recurrence off of it. She was on 400 mg b.i.d. for about 10 days. She developed nausea and a lot of vomiting for the dose initial 10 days with amiodarone was stopped on a followup visit by Dr. Henderson, which was appropriate. She continued to have nausea and vomiting, but she denied any shortness of breath. Yesterday, she went to bed and this morning when she woke up, she was feeling significantly more short of breath. She could not really talk in full sentences, so she was brought in for further evaluation. In the ER , she had a CT of the chest that showed bilateral pulmonary embolus high clot burden, so she is being admitted for this. On my evaluation, Ms. Hoskins denies any chest pain, tightness, pressure. Her shortness of breath is actually slightly better now that she is on oxygen and she is only tachycardic, but she is saturating fine on 2 liters. PAST MEDICAL HISTORY: 1. Coronary artery disease, status post ROSS to the LAD and a vein to diagonal about a month ago. 2. Hyperlipidemia. 3. Type 2 diabetes. 4. Hypothyroidism. PAST SURGICAL HISTORY: 1. Bilateral tubal ligation. 2. Foot surgery. 3. CABG x2 as above. OUTPATIENT MEDICATIONS: On most recent discharge should include: 1. Aspirin 325 a day. 2. Atorvastatin 40 mg at bedtime. 3. Carvedilol 3.125 mg b.i.d. 4. Zetia 10 mg a day. 5. Glyburide 2.5 mg a day. 6. Grafton p.r.n. pain. 7. Levothyroxine 75 mcg a day. 8. Lisinopril 2.5 mg a day. 9. Loratadine 10 mg at bedtime. 10. Metformin 1000 mg b.i.d. 11. Naproxen p.r.n. 12. Cetirizine. 13. Multivitamin daily. 14. Probiotics. ALLERGIES: 1. DIAZEPAM. 2. MELOXICAM. 3. SULFA DRUGS. 4. TOMATO. 5. TELMISARTAN. FAMILY HISTORY: Noncontributory. SOCIAL HISTORY: No alcohol, tobacco or drugs. REVIEW OF SYSTEMS: A 12-point review of systems was done and is all negative as stated in the history of present illness. PHYSICAL EXAMINATION: VITAL SIGNS: Temperature 97.6, pulse 94, respiration rate 16, satting 100% on 2 liters, blood pressure 153/64. GENERAL: Awake, alert, oriented x3, in no distress. HEENT: Normocephalic, atraumatic. NECK: Supple. LUNGS: Clear. CARDIOVASCULAR: S1, S2. No S3, S4, no murmurs or rubs. ABDOMEN: Soft, positive bowel sounds. EXTREMITIES: Trace edema in the right lower extremity. She states this is new from yesterday. SKIN: Warm and dry. LABORATORY WORK: Reviewed. White count of 14, hemoglobin of 10.9, hematocrit of 34, platelet count normal. Coags were normal. Chemistry was unremarkable except for glucose of 158, CK-MB was 0.8. Troponin was 0.03 and 0.02. BNP was 136. Albumin of 3.4. EKG sinus tachycardia, no ischemic changes. IMAGING: CT of the thorax was reviewed and shows signs consistent with COPD, atherosclerosis and extensive bilateral pulmonary emboli with a high clot burden. ASSESSMENT AND PLAN: 1. Acute pulmonary embolism concern for submassive pulmonary embolism. We will get an echocardiogram to assess right-sided chambers. She is not hypotensive, so this is not a massive PE. Agree with admission to the MICU. Lovenox full dose has already been given. We would probably switch her to Xarelto pulmonary embolism dosage tomorrow. 2. Coronary artery disease, status post bypass surgery. This is stable at this time. Currently, asymptomatic from this standpoint. 3. Nausea and vomiting: Will consult GI as my concern is she develops an ulcer and this would be a problem now that she needs full anticoagulation. Thank you for letting us participate in the care of your patient. We will continue to follow. ROSALIND
--- NOTE | 2018-01-04 03:32 | CON ---
DATE OF CONSULTATION: 01/03/2018 REASON FOR CONSULTATION: Nausea and vomiting. HISTORY OF PRESENT ILLNESS: Ms. Hoskins is a 77-year-old female who has been having nausea. She stat es ever since she had a surgery with bypass, coronary artery stent placement. She has been taking so me Zofran at home intermittently which she takes and do pretty well or even past couple days she had been having vomiting. She has lost about 10 pounds in surgery. She has not gained back yet. She wa s in the hospital in 11/28/2017, her memory care director thought some of her nausea was move from the amioda madelyn so would not have to stop that, she actually has an appointment to come to see me in 2 days. However, she presented to the emergency room today with abrupt onset of shortness of breath an d bilateral flank pain the past couple of days. Here in the emergency room, she was indicating hemog lobin of 8.1, white count 11.8, platelet count of 321. INR of 1.1. Chemistry with BNP 132. Normal troponin. Normal liver function test. BUN and creatinine are normal at 18 and 0.7. Sodium was 138, potassium was 4, metabolic profile is normal. In the emergency room, she had a CT of the chest, guzman wed extensive bilateral pulmonary artery with high pulmonary embolism burden. I talked with the patient, she has had no melena, hematochezia, hematemesis, she has had no dysphagia . PAST MEDICAL HISTORY: Coronary artery disease, status post recent bypass; hyperlipidemia; type 2 caroline betes; hypothyroidism. PAST SURGICAL HISTORY: Bilateral tubal ligation, foot surgery, CABG. She had upper and lower endosc opies in the past as well, has had a left ureteral stone as well. ALLERGIES: VALIUM, MOBIC, SULFA, and TOMATO. ACTIVE MEDICATIONS: Tylenol, Zofran, Xarelto, IV fluids. HOME MEDICINES: Metformin, glipizide, lisinopril, levothyroxine, acidophilus, probiotic, ferrous sul fate, , Coreg, and atorvastatin. PHYSICAL EXAMINATION: GENERAL: The patient is resting comfortably in bed. She is in no distress. The patient is alert an d oriented to person, place, and time. VITAL SIGNS: Pulse is 94, temperature 97, respirations 16, O2 sat 100% on 2 liters nasal cannula, bl ood pressure 153/64. NECK: She has got no JVD. HEENT: She has had no icterus. LUNGS: Clear. HEART: Regular rate and rhythm without clicks or murmur. ABDOMEN: Soft, nontender, without any palpable hepatosplenomegaly. EXTREMITIES: No clubbing, cyanosis, or edema. LABORATORY STUDIES: As per HPI. ASSESSMENT: 1. Nausea, vomiting. This may just be postoperative. She has no electrolyte abnormalities to sugge st adrenal insufficiency, although she does not improve with PPI therapy and treating her pulmonary e mbolisms and I would probably get a fasting cortisol adrenal insufficiency, it may be very well that her high clot burden with her pulmonary embolisms and probably underlying deep venous thrombosi s, which caused her nausea. 2. Recent coronary artery bypass grafting. 3. Large pulmonary embolism. RECOMMENDATIONS: 1. Agree with anticoagulation, agree with ulcer prophylaxis with PPI. 2. For nausea, it does not improve in the next day or so with treatment of PE and clot burden, we co nsider endoscopy in a couple of days once her disease is stabilized. We will follow along with you.
[2018-01-04] MEDS ORDERED: Enoxaparin Sodium 80 MG/0.8 ML SYRINGE SC SCH (04:00)
[2018-01-04] MEDS: Lisinopril 2.5 MG TAB PO SCH ×3 (08:59→21:34)
[2018-01-04] MEDS: Ezetimibe 10 MG TAB PO SCH (09:00)
[2018-01-04] MEDS: Carvedilol 3.125 MG TAB PO SCH ×2 (09:00→18:02)
[2018-01-04] MEDS: Rivaroxaban 15 MG TAB PO SCH ×2 (09:00→21:10)
--- NOTE | 2018-01-04 10:29 | HP ---
PRIMARY CARE PHYSICIAN: Dr. Ann Mancilla. CHIEF COMPLAINT: Nausea, vomiting, and shortness of breath. HISTORY OF PRESENT ILLNESS: Ms. Hoskins is a very pleasant 77-year-old female who recently had a gloria nary artery bypass graft on surgery on 11/13/2017. Ever since the surgery, she says that she has bee n having difficulty with intermittent nausea and vomiting. She had been placed on Zofran which helpe d off and on, but she still was having difficulty keeping food down. She denied having any abdominal pain. It was originally thought to be possibly secondary to amiodarone as she did have some transie nt atrial fibrillation postoperatively. This has since been discontinued. She also says that she wa s trying to do her cardiac rehab when she noticed that she was extremely short of breath and then she also noted that her heart rate was more rapid and when she came, she got to the point where she coul d barely complete a sentence with her due to shortness of breath and came to the emergency room for e valuation and was found to have bilateral pulmonary embolism and she is being admitted for the [facility] ent of this. REVIEW OF SYSTEMS: All systems were reviewed and are negative except for that mentioned in the histo ry of present illness. PAST MEDICAL HISTORY: Significant for coronary artery disease, diabetes mellitus, hypercholesterolem ia, and hypothyroidism. PAST SURGICAL HISTORY: She has had a bypass surgery on 11/13/2017. SOCIAL HISTORY: She is a nonsmoker, nondrinker. Denies any drug use and she is a FULL CODE. ALLERGIES: MOBIC, DIAZEPAM and SULFA. FAMILY HISTORY: No history of any inheritable diseases other than both parents had phlebitis and she says her grandfather " of phlebitis." CURRENT MEDICATIONS: Include Zetia 10 mg daily, carvedilol 3.125 mg twice a day, multivitamin once d aily, probiotic daily, iron sulfate 325 mg 3 times a day, Lipitor 40 mg at bedtime, lisinopril 2.5 mg twice daily, levothyroxine 75 mcg daily, glipizide extended release 5 mg twice daily and metformin 5 00 mg twice a day. PHYSICAL EXAMINATION: GENERAL: She currently is awake and alert, oriented. She appears to be in no acute distress. She i s well-developed and well-nourished. VITAL SIGNS: Blood pressure is 125/48, heart rate 87, respiratory rate of 18, temperature is 97.4, O 2 sats 98% on 2 liters. HEENT: Pupils are equal, round, and reactive. Extraocular muscles are intact. Her sclerae are anic teric. Throat; no erythema, no exudates. NECK: No adenopathy, no bruits. LUNGS: Clear to auscultation. There is no wheezing or rales. CARDIOVASCULAR: She has a normal S1 and S2. I did not appreciate an S3 or S4. No murmurs, clicks, no rubs. ABDOMEN: Obese, it is soft, it is nontender, nondistended. Positive for bowel sounds. There is no rebound or guarding. EXTREMITIES: There is no clubbing, cyanosis, no edema. NEUROLOGIC: Exam is nonfocal. SKIN AND INTEGUMENT: There are no skin changes. No rashes. LABORATORY DATA AND IMAGING DATA: On admission, her sodium was 138, potassium 4.7, chloride is 103, CO2 is 24, BUN of 18, creatinine 0.77, glucose is 158. Troponin was 0.037. White blood cell count w as 14.5, hemoglobin 10.9, hematocrit is 34 and platelet count was 314. INR was 1.1. She had a CT sc an in the ER which was positive for extensive bilateral pulmonary emboli with a high clot burden yee ges consistent with COPD. ASSESSMENT AND PLAN: 1. This is a 77-year-old female that presents to the emergency room with two major complaints; nause a and vomiting which she has already been evaluated by Gastroenterology. It is felt that the nausea and vomiting is likely postop related. Her symptoms seemed to be better today and therefore likely o nly requires symptom management. However, further recommendations will be based on how she does thro ughout the day. 2. Pulmonary embolism. She has already been started on anticoagulation. She is on Lovenox and has been switched to Xarelto. An echocardiogram is pending to see whether or not she has significant RV strain. Her blood pressure has been within the normal range. There is no evidence of any severe hyp otension. She will likely need to be monitored in the hospital a few days given her recent bypass wilcox rgery and the degree of clot burden and she will also be seen by Pulmonology. 3. Diabetes mellitus. We will continue her usual medications for diabetes as well as sliding scale insulin.
--- NOTE | 2018-01-04 11:01 | PDOC.CTH ---
Cardiology Progress Note - Subjective She is feeling better today. - Objective Vital Signs Temp Pulse Resp BP BP BP Pulse Ox 01/04/18 08:59 87 145/68 H 01/04/18 07:46 97.4 F L 87 18 98 01/04/18 07:00 97.9 F 99 20 158/53 H 98 01/04/18 03:57 97.4 F L 87 18 125/48 L 98 01/03/18 23:53 97.5 F L 90 16 117/47 L 98 Weight 149 lb 9 oz 01/03/18 01/04/18 01/05/18 06:59 06:59 06:59 Intake Total 360 Output Total 600 Balance -240 - Physical Examination General/Neuro: alert & oriented x3, NAD Neck: no JVD present Lungs: unlabored respirations Heart: RRR Abdomen: NT/ND Extremities: other: (no edema) - Telemetry Telemetry Rhythm: NSR - Labs Result Diagrams: 01/03/18 13:27 01/03/18 13:27 Troponin/CKMB CK-MB (CK-2) 0.8 ng/mL (0-6.6) 01/03/18 13:27 Troponin I 0.037 ng/mL (< 0.028) H 01/03/18 19:30 - Assessment/Plan 1. Acute Pulmonary embolism. Suspect submassive, Echo pending. 2. S/P CABG in November 2017, ROSS to LAD and SVG to diagonal. 3. Nausea and vomiting 4. Post op afib, no recurrence. PLAN: - Continue full dose anticoagulation. Currently on xarelto. - Echo pending today. - CAD stable. - GI on board. On PPI.
[2018-01-04] MEDS: glipiZIDE 5 MG TAB PO SCH (18:03)
--- NOTE | 2018-01-04 20:49 | CON ---
DATE OF CONSULTATION: 01/04/2018 Gato is a very pleasant woman who was hospitalized in November for coronary bypass grafting. She said since she went home from the hospital, she has been nauseated. She developed 2 days of shortness of breath, actually became quite tachypneic yesterday before presenting to the emergency room. She was diagnosed with thromboembolic disease, says she is dramatically improved today. She is normally quite inactive. She admits and says she has been more inactive since she had her heart surgery. PAST MEDICAL HISTORY: Remarkable for diabetes, lipid disorder, hypothyroidism. SOCIAL HISTORY: She had not smoked, drank, and used drugs. ALLERGIES: She reports allergies to VALIUM, MOBIC, and SULFA. FAMILY HISTORY: Negative family history of lung disease in early age. There is family history of phlebitis in her grandfather and father, it is unclear what the phlebitis truly was. MEDICATIONS: Prior to admission, she was on Zetia, Coreg, iron, Lipitor, lisinopril, Synthroid, glipizide, and metformin. REVIEW OF SYSTEMS: Ten point system review completed, otherwise negative. PHYSICAL EXAMINATION: GENERAL: She is in no distress. She is afebrile. Heart rate this morning was 99, respiratory rate is 20, oximetry is 98 on 2 liters, blood pressure 150/53. HEENT: Pupils are equal. Sclerae is anicteric. Extraocular movements full. NECK: Supple, no lymphadenopathy. Sternum appears to be healing nicely. LUNGS: Clear. HEART: Regular rhythm, no S3. ABDOMEN: Soft and nontender. EXTREMITIES: Without clubbing, cyanosis or edema. IMPRESSION: Thromboembolic disease. PLAN: Lovenox for 24 hours, probably converted to an oral agent tomorrow. I would label this as a thromboembolic event with a precipitating factor, i.e. surgery. The etiology of her nausea and anorexia is unclear at this time. Gastroenterology will hopefully be able to help sort through this while she is here. This was a 50-minute consult greater than 50% of consult was spent coordinating care on the unit. ROSALIND
--- NOTE | 2018-01-04 20:56 | PRG ---
DATE OF SERVICE: 01/04/2018 Ms. Hoskins is B11. She is breathing better. She does not have any nausea. She feels well. She has been started on oral anticoagulation. PHYSICAL EXAMINATION: VITAL SIGNS: Temperature is 98, pulse 82, blood pressure 129/56. ABDOMEN: Soft, nontender. LUNGS: Clear. LABORATORY DATA: Glucose 137. Otherwise, no labs today. ASSESSMENT: 1. Nausea and vomiting for several weeks. This may have been related to deep venous thrombosis and pulmonary embolism. 2. Shortness of breath, improved with treatment for deep venous thrombosis and pulmonary embolism. 3. No signs or symptoms of GI bleeding on prophylactic PPI. RECOMMENDATIONS: Continue observation. We will discuss with Cardiology. If they feel strongly, we can consider an EG D before discharge. She will check an H&H tomorrow and continue PPIs for now.
[2018-01-04] MEDS: Atorvastatin Calcium 40 MG TAB PO SCH (21:11)
[2018-01-05 06:09] LABS: Anion Gap 11 mmol/L (10-20); BUN (Urea Nitrogen) 9 mg/dL (9.8-20.1); Calc. Creatinine Clearance 79 mL/min (70-130); Calcium 8.4 mg/dL (7.8-10.44); Carbon Dioxide 27 mmol/L (23-31); Chloride 104 mmol/L (98-107); Estimated GFR-MDRD 87; Glucose 149 mg/dL (83-110); Potassium 3.9 mmol/L (3.5-5.1); Sodium 138 mmol/L (136-145)
[2018-01-05 06:54] LABS: Band 2 % (5-11); Hemoglobin 9.9 g/dL (12.0-16.0); Hypochromia SLIGHT = 6-15 cells (100X) (0-5/hpf); Lymphocytes 55 % (21-51); MDiff Complete? YES; Mean Corpuscular HGB CONC 32.7 g/dL (32.0-36.0); Mean Corpuscular Hemoglobin 27.1 pg (27.0-31.0); Mean Corpuscular Volume 82.9 fL (78.0-98.0); Mean Platelet Volume 6.7 fL (7.4-10.4); Monocytes 1 % (0-10); Neutrophil 42 % (42-75); PLT Morphology Comment Appears Adequate; Platelet Count 280 thou/uL (130-400); RBC Distribution Width 14.5 % (11.5-14.5); Red Blood Cell (RBC) Count 3.63 mill/uL (4.20-5.40); White Blood Cell (WBC) Count 10.2 thou/uL (4.8-10.8)
[2018-01-05] MEDS: Carvedilol 3.125 MG TAB PO SCH ×2 (08:17→16:57)
[2018-01-05] MEDS: Lisinopril 2.5 MG TAB PO SCH ×2 (08:18→21:19)
[2018-01-05] MEDS: Rivaroxaban 15 MG TAB PO SCH ×2 (08:20→21:19)
[2018-01-05] MEDS: Ezetimibe 10 MG TAB PO SCH (08:20)
[2018-01-05] MEDS: glipiZIDE 5 MG TAB PO SCH ×2 (08:20→16:57)
--- NOTE | 2018-01-05 10:36 | PDOC.PN ---
- Subjective Encounter Start Date: 01/05/18 Encounter Start Time: 10:35 Ms. Hoskins was seen today in follow-up of PE. She says she is feeling better. He has less nausea, and has been able to keep food down. She also is less short of breath, and was able to get up to the bedside commode. - Objective MAR Reviewed: Yes Vital Signs & Weight: Vital Signs (12 hours) Temp Pulse Resp BP Pulse Ox 01/05/18 08:18 87 01/05/18 08:00 97.8 F 87 18 99 01/05/18 07:38 97.8 F 79 18 122/60 100 01/05/18 04:00 97.6 F 80 20 137/52 L 97 01/05/18 00:00 98.0 F 84 18 129/45 L 98 Weight Weight 149 lb 9 oz I&O: 01/04/18 01/05/18 01/06/18 06:59 06:59 06:59 Intake Total 360 1710 Output Total 600 1700 Balance -240 10 Result Diagrams: 01/05/18 05:30 01/05/18 05:30 Additional Labs: Accuchecks 01/05/18 01/04/18 01/04/18 06:23 21:19 16:40 POC Glucose 156 H 136 H 137 H 01/04/18 10:44 POC Glucose 122 H Phys Exam - Physical Examination HEENT: PERRLA Respiratory: no wheezing, no rales, no rhonchi Cardiovascular: RRR, no significant murmur, no rub Gastrointestinal: soft, positive bowel sounds Musculoskeletal: no edema Dx/Plan (1) Pulmonary embolus Code(s): I26.99 - OTHER PULMONARY EMBOLISM WITHOUT ACUTE COR PULMONALE Status : Acute (2) Coronary artery disease Code(s): I25.10 - ATHSCL HEART DISEASE OF [place] CORONARY ARTERY W/O ANG PCTRS Status: Resolved (3) Nausea and vomiting Code(s): R11.2 - NAUSEA WITH VOMITING, UNSPECIFIED Status: Acute (4) Diabetes mellitus type 2 in nonobese Code(s): E11.9 - TYPE 2 DIABETES MELLITUS WITHOUT COMPLICATIONS Status: Acute - Plan * Pulmonary Embolus-Bilateral with large clot burden- continue Xarelto * Nausea and vomiting- this appears to be improving- continue as per GI * DM- can re-start Metformin tomorrow * HTN- blood pressure is stable * Echo results noted, she may need to be monitored in the hospital a few more days.
[2018-01-05] MEDS: Ferrous Sulfate 325 MG TAB PO SCH ×2 (11:30→16:57)
[2018-01-05] MEDS: Insulin Regular 300 UNITS/3 ML VIAL SC PRN (11:30)
--- NOTE | 2018-01-05 19:55 | PRG ---
DATE OF SERVICE: 01/05/2018 Ms. Hoskins says she feels much better. Her nausea and gastric distress appear to be gone. She denie s shortness of breath. Her vital signs have been stable. PHYSICAL EXAMINATION: VITAL SIGNS: She is afebrile, heart rate 79, respiratory rate 18, oximetry is 98% on 2L cannula. Bl ood pressure 151/55. LUNGS: Clear. HEART: Regular rhythm. ABDOMEN: Nontender. EXTREMITIES: Without asymmetry. NEUROLOGIC: Grossly nonfocal. Echocardiogram shows normal ejection fraction, grade I diastolic dysfunction. There is some elevated right ventricular pressure as expected, seen on the echo. LABORATORY DATA: White count 10.02, hemoglobin 9.9, platelets 280. Sodium 138, 3.9, chloride 104, b icarbonate 27, BUN 9, creatinine 0.66. IMPRESSION: 1. Thromboembolic disease after surgery a month ago. 2. Malaise, anorexia, nausea improved. Dr. Witt is working this up. She may have endoscopy just for visualization of her stomach since sh marsha is on anticoagulants. I would agree with this. She is stable to move out of the intermediate care unit in my opinion.
[2018-01-05] MEDS: Atorvastatin Calcium 40 MG TAB PO SCH (21:19)
[2018-01-06] MEDS: Levothyroxine Sodium 75 MCG TAB PO SCH (06:27)
--- NOTE | 2018-01-06 09:00 | PRG ---
DATE OF SERVICE: 01/05/2018 SUBJECTIVE: Ms. Hoskins did not eat much tonight. She did not like the food. She does state she has had no further nausea. She feels better. Shortness of breath is gone. PHYSICAL EXAMINATION:. VITAL SIGNS: Temperature is 98, pulse 97, blood pressure 151/55. ABDOMEN: Soft, nontender. LUNGS: Clear. LABORATORY STUDIES: White count is 10.2, hemoglobin is 9.9, platelet count is 280. Electrolytes wit hin normal limits. ASSESSMENT: 1. Nausea and vomiting prior to admission, improved now on PPIs. 2. Diagnosed with multifocal pulmonary embolus and on treatment. PLAN: Due to mild anemia, recent bypass and stress, I have talked with Cardiology and Pulmonary Crit ical Care. We will go and proceed with EGD tomorrow. If it shows no ulcer underlying peptic etiolog y with the patient's nausea especially since she can be discharged home on long-term anticoagulation.
--- NOTE | 2018-01-06 09:27 | PDOC.PN ---
- Subjective Encounter Start Date: 01/06/18 Encounter Start Time: 09:26 Ms. Hoskins was seen today in follow-up for PE. She is feeling a bit better everyday. She is less short of breath. - Objective MAR Reviewed: Yes Vital Signs & Weight: Vital Signs (12 hours) Temp Pulse Resp BP Pulse Ox 01/06/18 07:50 98.5 F 78 20 99 01/06/18 07:00 98.5 F 78 20 158/56 H 99 01/06/18 04:22 97.0 F L 84 20 120/57 L 97 01/06/18 00:21 97.0 F L 77 21 H 145/52 H 98 Weight Weight 149 lb 9 oz I&O: 01/05/18 01/06/18 01/07/18 06:59 06:59 06:59 Intake Total 1710 1130 Output Total 1700 1325 Balance 10 -195 Result Diagrams: 01/05/18 05:30 01/05/18 05:30 Additional Labs: Accuchecks 01/06/18 01/05/18 01/05/18 05:59 20:13 15:57 POC Glucose 148 H 134 H 98 01/05/18 10:44 POC Glucose 165 H Phys Exam - Physical Examination HEENT: PERRLA Respiratory: no wheezing, no rales, no rhonchi, clear to auscultation bilateral Cardiovascular: RRR, no rub + right ventricular lift 2/6 systolic murmur Gastrointestinal: soft, non-tender, positive bowel sounds Musculoskeletal: no edema Dx/Plan (1) Pulmonary embolus Code(s): I26.99 - OTHER PULMONARY EMBOLISM WITHOUT ACUTE COR PULMONALE Status : Acute (2) Coronary artery disease Code(s): I25.10 - ATHSCL HEART DISEASE OF [place] CORONARY ARTERY W/O ANG PCTRS Status: Resolved (3) Nausea and vomiting Code(s): R11.2 - NAUSEA WITH VOMITING, UNSPECIFIED Status: Acute (4) Diabetes mellitus type 2 in nonobese Code(s): E11.9 - TYPE 2 DIABETES MELLITUS WITHOUT COMPLICATIONS Status: Acute - Plan * Acute Bilateral PE- continue Xarelto * Nausea and vomiting- ? etiology- plan is for EGD today * CAD- stable- she never had the opportunity to do Cardiac Rehab- so plan is for Rehab transfer when stable * DM- blood glucose is stable * HTN- blood pressure is stable.
[2018-01-06] MEDS: Ferrous Sulfate 325 MG TAB PO SCH ×3 (11:02→16:45)
[2018-01-06] MEDS: glipiZIDE 5 MG TAB PO SCH ×2 (11:02→16:45)
[2018-01-06] MEDS ORDERED: Promethazine HCl 25 MG/ML VIAL SLOW IVP PRN (11:40)
[2018-01-06] MEDS ORDERED: Ondansetron HCl/PF 4 MG/2 ML Vial IVP PRN (11:40)
[2018-01-06] MEDS ORDERED: Promethazine HCl 25 MG/ML VIAL IM PRN (11:40)
[2018-01-06] MEDS: Carvedilol 3.125 MG TAB PO SCH ×2 (12:07→16:45)
[2018-01-06] MEDS: Rivaroxaban 15 MG TAB PO SCH ×2 (12:07→20:42)
[2018-01-06] MEDS: Lisinopril 2.5 MG TAB PO SCH ×2 (12:07→20:42)
[2018-01-06] MEDS: Ezetimibe 10 MG TAB PO SCH (12:18)
[2018-01-06] MEDS: Saccharomyces boulardii 250 MG CAP PO SCH (12:19)
[2018-01-06] MEDS: Aspirin 81 mg Enteric Coated Tablet PO SCH (12:19)
--- NOTE | 2018-01-06 12:46 | PRG ---
DATE OF SERVICE: 01/06/2018 Ms. Hoskins has no complaints. She underwent endoscopy today which showed maybe a little bit of thrus h, but no ulcers. Her nausea is still gone. PHYSICAL EXAMINATION: VITAL SIGNS: Her blood pressure 150/56, heart rate 78, respiratory rate is 20, oximetry is 99. She is afebrile. LUNGS: Clear. HEART: Regular rhythm. ABDOMEN: Soft. IMPRESSION: 1. Pulmonary emboli. 2. Anemia with an unremarkable EGD. Her MCV was down, there has been no GI bleeding this admission. 3. Diabetes. 4. Lipid disorder. 5. Hypothyroidism. PLAN: Continue supportive care and anticoagulation. She will need to have her CBC followed closely as an outpatient since she is borderline anemic. She will move out of the telemetry unit today to a non-monitored bed on the medical floor if one becomes available.
[2018-01-06] MEDS: Fluconazole 100 MG TAB PO SCH (13:10)
--- NOTE | 2018-01-06 14:20 | OP ---
PREPROCEDURE DIAGNOSES: Recent issues with nausea, anorexia after bypass surgery, but symptoms persisted. Ultimately, she was diagnosed with PEs. She is on a PPI and feeling somewhat better now . She is going to be going home on chronic anticoagulation and will need to rule out ulcer disease. POSTPROCEDURE DIAGNOSES: Mild Bambi in the distal esophagus, probably not causing symptoms now, jesus jimenez this was more prominent few weeks ago when she was still getting over her surgery. Otherwise, no signs of ulcers or esophagitis or gastritis or duodenitis. RECOMMENDATIONS: 1. Continue PPI prophylaxis while on anticoagulation. 2. Diflucan for 5 days. ANESTHESIA: TIVA. PROCEDURE IN DETAIL: After the patient was informed of the risks, benefits, possible complications o f endoscopy or perforation, reactions to medication and aspiration, informed consent was obtained. T he patient was brought in to operative suite where she was sedated in gradual fashion. Once she was comfortable, orifice. The scope was advanced through the esophagus, stomach, second and third portion of duodenum. The esophagus was notable for a few areas of white exudate in the distal esopha rachael were adherent. These were very small. There was no severe plaquing. This was 2 or 3 spots. I did not biopsy it because she is on full dose anticoagulation, it is probably Bambi. It may be jamal t it was causing her symptoms much worse just after surgery. She is immunosuppressed and getting ove r surgery, but now I do not think would really even give her symptoms, we will go ahead and treat it for 5 days; however, the stomach and duodenum were otherwise normal in forward and retroflexed views down to the third portion of duodenum. The scope was removed. The patient tolerated the procedure w ithout any complications.
[2018-01-06] MEDS ORDERED: PROPOFOL 200 MG/20 ML VIAL ONE (15:44)
[2018-01-06] MEDS ORDERED: Lidocaine 1% PF 5 ML VIAL ONE (15:44)
[2018-01-06] MEDS: Insulin Regular 300 UNITS/3 ML VIAL SC PRN (17:38)
[2018-01-06] MEDS: Atorvastatin Calcium 40 MG TAB PO SCH (20:42)
[2018-01-07 05:11] LABS: Hemoglobin 9.9 g/dL (12.0-16.0); Platelet Count 317 thou/uL (130-400)
[2018-01-07] MEDS: Levothyroxine Sodium 75 MCG TAB PO SCH (05:50)
[2018-01-07] MEDS: Ezetimibe 10 MG TAB PO SCH (07:47)
[2018-01-07] MEDS: Carvedilol 3.125 MG TAB PO SCH ×2 (07:47→16:16)
[2018-01-07] MEDS: Fluconazole 100 MG TAB PO SCH (07:47)
[2018-01-07] MEDS: glipiZIDE 5 MG TAB PO SCH ×2 (07:47→16:15)
[2018-01-07] MEDS: Lisinopril 2.5 MG TAB PO SCH ×2 (07:47→20:33)
[2018-01-07] MEDS: Ferrous Sulfate 325 MG TAB PO SCH ×3 (07:48→16:16)
[2018-01-07] MEDS: Aspirin 81 mg Enteric Coated Tablet PO SCH (07:48)
[2018-01-07] MEDS: Saccharomyces boulardii 250 MG CAP PO SCH (07:48)
[2018-01-07] MEDS: Rivaroxaban 15 MG TAB PO SCH ×2 (09:40→20:34)
--- NOTE | 2018-01-07 13:11 | PRG ---
DATE OF SERVICE: 01/07/2018 SUBJECTIVE: This morning, the patient is better. She is weak. She is going to go to cardiac rehabi litation. OBJECTIVE: VITAL SIGNS: Sats are 90% on room air, respiration rate 18, temperature 98, pulse 82. CHEST: Revealed decreased breath sounds, no wheezing. CARDIAC: Normal S1 and S2, regular. LABORATORY DATA: Electrolytes are normal. IMPRESSION: Pulmonary emboli bilaterally, diabetes, hypothyroidism, and deconditioning. PLAN: Continue Xarelto 15 twice a day. PT and supportive care. We will follow.
--- NOTE | 2018-01-07 13:56 | EKG ---
Blood Pressure : / mmHG Vent. Rate : 110 BPM Atrial Rate : 110 BPM P-R Int : 166 ms QRS Dur : 152 ms QT Int : 374 ms P-R-T Axes : 076 -18 156 degrees QTc Int : 506 ms Sinus tachycardia with Premature supraventricular complexes Possible Left atrial enlargement Left bundle branch block Abnormal ECG Confirmed by HOLA ALBARRAN D.O. ([id number]), desk editor ROMAN CONNOR ([id number]) on 01/07/2018 1:56:33 PM Referred By: Confirmed By:HOLA ALBARRAN D.O.
--- NOTE | 2018-01-07 16:22 | PDOC.PN ---
- Subjective Encounter Start Date: 01/07/18 Encounter Start Time: 16:20 Ms. Hoskins was seen today in follow-up. She does not have any complaints other than a cough off and on. She believes it is due to sinus congestion. - Objective MAR Reviewed: Yes Vital Signs & Weight: Vital Signs (12 hours) Temp Pulse Resp BP Pulse Ox 01/07/18 08:00 98.1 F 82 18 98 01/07/18 07:47 82 01/07/18 07:39 98.2 F 82 20 121/71 92 L 01/07/18 05:00 94 L Weight Weight 149 lb 9 oz I&O: 01/06/18 01/07/18 01/08/18 06:59 06:59 06:59 Intake Total 1130 260 600 Output Total 1325 2 Balance -195 258 600 Result Diagrams: 01/07/18 04:41 01/07/18 04:41 Additional Labs: Accuchecks 01/07/18 01/07/18 01/06/18 11:10 04:09 20:36 POC Glucose 136 H 138 H 144 H 01/06/18 01/06/18 16:58 12:01 POC Glucose 198 H 127 H Phys Exam - Physical Examination HEENT: PERRLA Respiratory: no rales, no rhonchi, wheezing present Cardiovascular: RRR, no rub 2/6 systolic murmur Gastrointestinal: soft, non-tender, positive bowel sounds Musculoskeletal: no edema Dx/Plan (1) Pulmonary embolus Code(s): I26.99 - OTHER PULMONARY EMBOLISM WITHOUT ACUTE COR PULMONALE Status : Acute (2) Coronary artery disease Code(s): I25.10 - ATHSCL HEART DISEASE OF [place] CORONARY ARTERY W/O ANG PCTRS Status: Resolved (3) Nausea and vomiting Code(s): R11.2 - NAUSEA WITH VOMITING, UNSPECIFIED Status: Acute (4) Diabetes mellitus type 2 in nonobese Code(s): E11.9 - TYPE 2 DIABETES MELLITUS WITHOUT COMPLICATIONS Status: Acute - Plan * Pulmonary Embolus- Continue Xarelto, PT for deconditioning * CAD- with recent CABG- continue Cardiac Rehab * HTN - blood pressure is stable. * DM- blood glucose is stable
[2018-01-07] MEDS ORDERED: Loratadine 10 MG TAB PO PRN (16:30)
[2018-01-07] MEDS: Atorvastatin Calcium 40 MG TAB PO SCH (20:33)
[2018-01-08] MEDS: Levothyroxine Sodium 75 MCG TAB PO SCH (05:37)
[2018-01-08 07:32] VITALS: BP 129/79
[2018-01-08] MEDS: glipiZIDE 5 MG TAB PO SCH (07:39)
[2018-01-08] MEDS: Ferrous Sulfate 325 MG TAB PO SCH ×2 (07:40→11:26)
[2018-01-08] MEDS: Ezetimibe 10 MG TAB PO SCH (07:40)
[2018-01-08] MEDS: Rivaroxaban 15 MG TAB PO SCH (07:40)
[2018-01-08] MEDS: Lisinopril 2.5 MG TAB PO SCH (07:40)
[2018-01-08] MEDS: Aspirin 81 mg Enteric Coated Tablet PO SCH (07:40)
[2018-01-08] MEDS: Carvedilol 3.125 MG TAB PO SCH (07:40)
[2018-01-08] MEDS: Fluconazole 100 MG TAB PO SCH (07:40)
[2018-01-08] MEDS: Saccharomyces boulardii 250 MG CAP PO SCH (07:40)
[2018-01-08 09:34] VITALS: TEMP 98.1
--- NOTE | 2018-01-08 13:57 | PRG ---
DATE OF SERVICE: 01/08/2018 SUBJECTIVE: She is better. She is less short of breath. She is walking in the halls. OBJECTIVE: VITAL SIGNS: Sats are 90% room air, respiratory rate 18, pulse 74, temperature 98, 129/79 blood pres sure. CHEST: No wheezing or crackles. CARDIAC: Normal S1 and S2, no gallops. ABDOMEN: Soft, without any mass. IMPRESSION: Status post pulmonary embolism, diabetes and deconditioning. She will going to rehab today on Xarelto. Continue PT and supportive care. We will follow.
--- NOTE | 2018-01-08 13:58 | PDOC.PN ---
- Subjective Encounter Start Date: 01/08/18 Encounter Start Time: 13:57 Ms. Hoskins was seen today in follow-up of Pulmonary embolus. She does not have any complaints today. - Objective MAR Reviewed: Yes Vital Signs & Weight: Vital Signs (12 hours) Temp Pulse Resp BP Pulse Ox 01/08/18 08:00 98.1 F 74 18 96 01/08/18 07:40 74 01/08/18 07:31 98.4 F 74 20 129/79 93 L Weight Weight 149 lb 9 oz I&O: 01/07/18 01/08/18 01/09/18 06:59 06:59 06:59 Intake Total 260 1240 240 Output Total 2 Balance 258 1240 240 Result Diagrams: 01/07/18 04:41 01/07/18 04:41 Additional Labs: Accuchecks 01/08/18 01/08/18 01/07/18 11:13 04:01 19:19 POC Glucose 173 H 130 H 179 H 01/07/18 16:41 POC Glucose 103 Phys Exam - Physical Examination HEENT: PERRLA Respiratory: no wheezing, no rales, no rhonchi, clear to auscultation bilateral Cardiovascular: RRR, no significant murmur Gastrointestinal: soft, non-tender, positive bowel sounds Musculoskeletal: no edema Dx/Plan (1) Pulmonary embolus Code(s): I26.99 - OTHER PULMONARY EMBOLISM WITHOUT ACUTE COR PULMONALE Status : Acute (2) Coronary artery disease Code(s): I25.10 - ATHSCL HEART DISEASE OF [place] CORONARY ARTERY W/O ANG PCTRS Status: Resolved (3) Nausea and vomiting Code(s): R11.2 - NAUSEA WITH VOMITING, UNSPECIFIED Status: Acute (4) Diabetes mellitus type 2 in nonobese Code(s): E11.9 - TYPE 2 DIABETES MELLITUS WITHOUT COMPLICATIONS Status: Acute - Plan * Acute Bilateral Pulmonary Embolus- continue Xarelto. * CAD s//p CABG- stable continue Cardiac rehab * HTN- blood pressure is stable * DM- blood glucose is stable * Stable for transfer to Rehab
--- NOTE | 2018-01-08 23:29 | DIS ---
PRIMARY CARE PHYSICIAN: Ann Mancilla M.D. DATE OF ADMISSION: 01/03/2018 DATE OF DISCHARGE: 01/08/2018 DISCHARGE DISPOSITION: To inpatient rehabilitation. DISCHARGE DIAGNOSES: 1. Bilateral pulmonary emboli. 2. Coronary artery disease, recent coronary artery bypass grafting. 3. Diabetes mellitus, type 2. 4. Hypercholesterolemia. 5. Hypothyroidism. DISCHARGE MEDICATIONS: Include Xarelto 15 mg twice daily, multivitamin once a day, metformin 500 mg twice daily, lisinopril 2.5 mg twice a day, levothyroxine 75 mcg daily, Probiotic 1 capsule daily, Gl ucotrol 2.5 mg one-half tablet twice daily, iron sulfate 325 mg t.i.d., Zetia 10 mg daily, carvedilol 3.125 mg twice daily, Lipitor 40 mg at bedtime. CODE STATUS: FULL CODE. ALLERGIES: DIAZEPAM, MELOXICAM, SULFA, and TOMATOES. PROCEDURES DONE DURING ADMISSION: The patient had a CT angiogram of the chest, which showed extensiv e bilateral pulmonary emboli with high-clot burden changes associated with chronic obstructive pulmon gabrielle disease. The patient also had an echocardiogram showing an ejection fraction estimated at 55% to 60%. There was grade I/III diastolic dysfunction, no regional wall motion abnormalities. There was flattened diastole D-shaped consistent with a right ventricular pressure overload, mildly dilated le ft atrium, [id number] tricuspid regurgitation, and severely elevated PA pressure at 70 mmHg. HOSPITAL COURSE: Mr. Hoskins is a very pleasant 77-year-old female that presented to the emergency ro om with severe dyspnea on exertion. She was evaluated in the ER and found to have a large bilateral pulmonary embolism. She was admitted and started on anticoagulation initially with Lovenox and then transitioned to Xarelto. She did not have any hypotension and she remained hemodynamically stable. She did have some RV strain pattern on her echo. Once she had been on anticoagulation for a few days , her symptoms started to improve and she was subsequently able to be discharged to the inpatient slim abilitation, as she had not been able to participate in cardiac rehabilitation prior to this admissio n. She had been having some nausea and vomiting, which resolved. She had an upper endoscopy, which was negative for an ulcer also during this hospitalization.
== END 2018-01-08 16:06 | DRG 176 ==
LOC: ERS 12:20 → IMCU/EMU 17:30 → T4-B 01-07 00:31
PROVIDERS: ADMIT Internal Medicine; ATTEND Internal Medicine
PROC: 0DJ08ZZ Inspection of Upper Intestinal Tract, Via Natural or Artificial Opening Endoscopic (ICD-10-PCS; principal; 2018-01-06)
DX: I26.99 Other pulmonary embolism without acute cor pulmonale (principal); B37.81 Candidal esophagitis; I25.10 Atherosclerotic heart disease of native coronary artery without angina pectoris; E11.9 Type 2 diabetes mellitus without complications; E78.00 Pure hypercholesterolemia, unspecified; E03.9 Hypothyroidism, unspecified; R11.2 Nausea with vomiting, unspecified; D64.9 Anemia, unspecified; R63.0 Anorexia; Z68.27 Body mass index [BMI] 27.0-27.9, adult; Z88.2 Allergy status to sulfonamides; Z79.84 Long term (current) use of oral hypoglycemic drugs; Z79.82 Long term (current) use of aspirin; Z95.1 Presence of aortocoronary bypass graft
CPT/HCPCS: 36415; 36416; 71045; 71275; 80048; 80053; 82553; 82565; 83880; 84484; 85014; 85018; 85025; 85049; 85610; 85730; 93005; 93306; 96372; G8978-GP-CJ; G8979-GP-CI; G8987-GO-CJ; G8988-GO-CI; J1650; J1815; J2001; J2704

== ENCOUNTER 2018-04-17 17:14 | Inpatient (IN) | payer MEDICARE ==
[2018-04-17] MEDS ORDERED: Dextrose 5% in Water 1,000 ML IV PRN (19:08)
[2018-04-17] MEDS ORDERED: Dextrose 50% Abboject 50 ML SYRINGE SLOW IVP PRN (19:08)
[2018-04-17] MEDS ORDERED: Ondansetron PF 4 MG/2 ML Vial IVP PRN ×2 (19:08→20:55)
[2018-04-17] MEDS ORDERED: Insulin Regular 300 UNITS/3 ML VIAL SC PRN (19:08)
[2018-04-17] MEDS ORDERED: Ondansetron ODT 4 MG TAB SL PRN (20:55)
[2018-04-17] MEDS ORDERED: Acetaminophen 325 MG TAB PO PRN (20:55)
[2018-04-17] MEDS: Famotidine/PF 20 mg/2ml Vial SLOW IVP SCH (22:08)
--- NOTE | 2018-04-17 23:56 | CON ---
DATE OF CONSULTATION: 04/17/2018 ATTENDING PHYSICIAN: Mauricio Stewart M.D. HISTORY OF PRESENT ILLNESS: The patient is a 77-year-old female with past medical history of coronary artery disease, diabetes, hypertension, hyperlipidemia, history of pulmonary embolisms following cardiac bypass surgery in 11/2017 on Xarelto and aspirin, who presented to the emergency department following a slip and fall in the shower. The patient was evaluated with noncontrast CT of the head upon arrival to the ER where she was found to have small subdural hematoma along the interhemispheric fissure. There was no mass effect or midline shift. The patient was transferred from [facility] to [facility] for Neurosurgery consultation as well as further management. She has a GCS of 15. She has no focal neurologic deficits. She does have a small laceration to the scalp recently repaired by francesca. PAST MEDICAL HISTORY: Hypertension, hyperlipidemia, diabetes, coronary artery disease, status post bypass surgery in 11/13/2017, complicated by pulmonary embolism. PAST SURGICAL HISTORY: Tubal ligation, cataract surgery, heel surgery, CABG in 11/13/2017. SOCIAL HISTORY: The patient does not smoke, drink or use any drugs. ALLERGIES: She is allergic to AMIODARONE, MOBIC, SULFA, and VALIUM. REVIEW OF SYSTEMS: Per HPI. PHYSICAL EXAMINATION: CONSTITUTIONAL: GCS of 15. No acute distress, comfortable. VITAL SIGNS: Blood pressure is 148/83, pulse is 88, respiration rate is 16, temperature is 98. She is 97% on room air. HEAD: She has a small recently repair of laceration to the scalp. EYES: PERRLA. Extraocular movements intact. ENT: Oral mucosa is pink, intact and moist. She has normal voice. NECK: Nontender to palpation. Free active range of motion, no meningismus or nuchal rigidity. CARDIOVASCULAR: Regular rate and rhythm. RESPIRATORY: She is breathing comfortably. Symmetric chest expansion. No evidence of dyspnea. MUSCULOSKELETAL: Free active range of motion of all extremities, no deformities. No focal motor weakness. NEUROLOGIC: Alert and oriented x4. GCS of 15. Normal speech. No focal neurologic deficits are appreciated. ASSESSMENT AND PLAN: This is a 77-year-old female status post mechanical fall with small interhemispheric subdural hematoma, but there is no mass effect or midline shift. We will plan to stop the patient's aspirin and Xarelto. The patient will be monitored closely with q.1 neuro checks and we will plan to repeat her a.m. head CT. Head of the bed should be elevated to 30 degrees, systolic blood pressure should have strict control with a goal of less than 150. The patient will be admitted primarily to the Trauma Service. I have discussed this plan with Dr. Stewart who is in agreement. ROSALIND
--- NOTE | 2018-04-18 01:11 | HP ---
CHIEF COMPLAINT: Fall. HISTORY OF PRESENT ILLNESS: Ms. Hoskins is a 77-year-old woman who was getting up after a nap to get ready for her physical therapy appointment. She went to the bathroom and she thinks her feet got chery gled up in her dog's blanket and she fell forward into the bathtub. 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 She denies l oss of consciousness and was able to get help and was brought into her local emergency room where she was found to have a small subdural hematoma and was transferred here for further care. She has been on Xarelto since November for bilateral PEs. She states that this happened shortly after her heart surg jose angel and that Dr. Burns recently changed her from twice a day to once daily Xarelto. She has had an EMV of 15 since her arrival and her scalp laceration was repaired in the emergency room. PAST MEDICAL HISTORY: Coronary artery disease, status post 2-vessel CABG in November of this year. She had a postoperative PE due to DVTs and is on Xarelto for this. She has familiar hyperlipidemia which is controlled on medications as well as hypothyroidism and CLL diagnosed several years ago and not r equiring any management except for iron tablets prescribed by Dr. Christensen. PAST SURGICAL HISTORY: Tubal ligation, cataracts, foot surgery and her 2-vessel coronary artery bypa ss grafting in November. Of note, she states that her surgery was delayed 4 days because she had some un usual antibodies in her blood and it took that long, so signs cross matched blood for her. SOCIAL HISTORY: She does not smoke, drink or use illicit drugs. She lives independently. REVIEW OF SYSTEMS: Ten system review of systems is negative except per HPI. OUTPATIENT MEDICATIONS: She takes lisinopril twice a day. She does not know the milligram dosage. This was just started after her heart surgery. She is also on a probiotic and is no longer taking om eprazole. She still takes her Synthroid daily, metformin daily, atorvastatin daily, iron tablets krupa ly, Zyrtec twice a day, multivitamin daily, 81 mg of aspirin daily and Xarelto daily. She takes glip izide daily as well, but she does not know the milligram dosages and states that her family is kentrell ng her medications in from home. She had a severe adverse drug reaction to AMIODARONE which caused s evere nausea and vomiting and 30 pounds of weight loss before they realized that was due to her medic ations. She gets hives with VALIUM, MOBIC, SULFA and gets acid blisters on her fingers if she eats t oo many FRESH TOMATOES. FAMILY HISTORY: Noncontributory. PHYSICAL EXAMINATION: VITAL SIGNS: The patient has been afebrile in the emergency room, heart rate in the 80s-90s, blood p ressure mildly elevated. This was quite high when she came in at 198/93 but has since come down to 1 56/67 after some pain medications. GENERAL: Reveals a spry elderly woman in no acute distress. HEENT: Her scalp laceration is dressed. There is no bleeding. Pupils are equal, round, and reactiv e to light. Extraocular movements are intact. Face is atraumatic with normal symmetric movements. NECK: Supple, without lymphadenopathy or thyroid nodules. She does not have any tenderness over her neck. She has some mild tenderness to palpation between her shoulder blades, but thoracic spine daniella ging was negative for fracture in the outside ER and her tenderness is quite mild. LUNGS: Clear to auscultation. ABDOMEN: Soft and nontender to palpation. HEART: Sounds are regular in rate and rhythm without murmurs, rubs or gallops. Pelvis is stable and nontender. EXTREMITIES: Warm and well perfused without edema or deformity or tenderness to palpation. NEUROLOGIC: No focal deficits. PSYCHIATRIC: Alert, oriented, and appropriate. LABORATORY DATA AND IMAGING DATA: White count is 11.9, hematocrit 37, platelets 236, INR 1.2, glucos e 169. LFTs and electrolytes are unremarkable. Thoracic spine x-ray did not show any fracture or wilcox bluxation, just mild degenerative changes. CT of the brain showed a small subdural in the parasagitt al area as well as an old lacunar infarct in the left basal ganglia. ASSESSMENT AND PLAN: Intracranial hemorrhage with small subdural hemorrhage. EMV is 15 and she is a lert, oriented and appropriate. We will admit her for serial neurologic checks and repeat CT. We ar e holding her Xarelto and aspirin. Neurosurgery has seen her and made recommendations. I have infor med Dr. Burns who is her heart doctor of her admission.
[2018-04-18 03:52] VITALS: BMI 27.4
[2018-04-18 06:16] LABS: Anion Gap 11 mmol/L (10-20); BUN (Urea Nitrogen) 17 mg/dL (9.8-20.1); Calc. Creatinine Clearance 72 mL/min (70-130); Calcium 9.5 mg/dL (7.8-10.44); Carbon Dioxide 28 mmol/L (23-31); Chloride 105 mmol/L (98-107); Estimated GFR-MDRD 78; Glucose 131 mg/dL (83-110); Potassium 3.9 mmol/L (3.5-5.1); Sodium 140 mmol/L (136-145)
[2018-04-18 06:37] LABS: Hemoglobin 11.7 g/dL (12.0-16.0); Mean Corpuscular HGB CONC 31.9 g/dL (32.0-36.0); Mean Corpuscular Hemoglobin 27.6 pg (27.0-31.0); Mean Corpuscular Volume 86.5 fL (78.0-98.0); Mean Platelet Volume 9.1 fL (7.4-10.4); Platelet Count 183 thou/uL (130-400); Red Blood Cell (RBC) Count 4.25 mill/uL (4.20-5.40); White Blood Cell (WBC) Count 10.8 thou/uL (4.8-10.8)
[2018-04-18 06:53] LABS: Eosinophils 1 % (0-10); Lymphocytes 58 % (21-51); MDiff Complete? YES; Monocytes 6 % (0-10); Neutrophil 35 % (42-75); PLT Morphology Comment Appears Adequate; RBC Morphology Normal
--- NOTE | 2018-04-18 09:04 | CT ---
PRELIMINARY REPORT/[facility]/EMERGENTY AFTER-HOURS PROCEDURE CT Head Without Intravenous Contrast EXAM DATE/TIME: 04/18/2018 4:45 AM CLINICAL HISTORY: 77 years old, female; Condition or disease; Other: Sdh; Patient HX: F/u sdh TECHNIQUE: Axial computed tomography images of the head/brain without intravenous contrast. COMPARISON: No relevant prior studies available. FINDINGS: Brain: Mild chronic microvascular ischemic changes are noted in the periventricular areas. Mild diffu se cerebral atrophy is seen. Subcentimeter hypodensity in the left basal ganglia likely representsNa lacunar infarct. Ventricles: Normal. No ventriculomegaly. Bones/joints: Normal. No acute fracture. Sinuses: Normal as visualized. No acute sinusitis. Mastoid air cells: Normal as visualized. No mastoid effusion. Soft tissues: Normal. Vasculature: Vertebral artery calcifications are seen. IMPRESSION: 1. No acute findings. ASPECTS score 10. 2. Mild chronic microvascular ischemic changes with mild diffuse cerebral atrophy. 3. Subcentimeter hypodensity in the left basal ganglia likely represents a lacunar infarct. Thank you for allowing us to participate in the care of your patient. Dictated and Authenticated by: Stacy Walker MD 04/18/2018 5:05 AM Central Time (US & Min) FINAL REPORT CT HEAD NONCONTRAST PERFORMED ON AN EMERGENCY BASIS: Date: 04/18/18 Time: 0446 hours HISTORY: Intracranial hemorrhage. Follow-up. COMPARISON: 04/17/18. FINDINGS: Findings agree with the preliminary report by Samara. The tiny hyperdense subdural fluid collection hai ng the anterior aspect of the interhemispheric fissure is stable. No new areas of acute intracranial hemorrhage are apparent. Chronic-type findings are stable.
[2018-04-18] MEDS: Famotidine/PF 20 mg/2ml Vial SLOW IVP SCH ×2 (09:10→21:37)
--- NOTE | 2018-04-18 12:21 | PRG ---
DATE OF SERVICE: 04/18/2018 The patient is seen and examined, I agree with Clementina Burkett's evaluation on 04/17/2018. Ms. Hoskins is a 77-year-old woman injured in a fall at home. She is currently essentially asymptomat ic. A CT scan reveals a parafalcine subdural hematoma which was quite tiny and stable on followup. IMPRESSION AND PLAN: Tiny falcine subdural hematoma. Recommend hold blood thinners for 2 weeks, the n resume. No specific plans for clinical radiographic followup.
--- NOTE | 2018-04-18 17:02 | ULT ---
BILATERAL LOWER EXTREMITY VENOUS DOPPLER ULTRASOUND: Date: 04/18/18 HISTORY: Bilateral lower extremity pain. TECHNIQUE: Gomes scale ultrasound with color flow and spectral Doppler imaging of the deep venous systems of the lower extremities was performed bilaterally. FINDINGS: There is good flow, compression, and augmentation noted in the common femoral, femoral, deep femoral, popliteal, posterior tibial, and greater saphenous veins on either side. Incidental note is made of an avascular cystic mass in the medial left thigh measuring 3.2 x 2.1 x 3. 7 cm, consistent with cyst. IMPRESSION: No evidence of deep venous thrombosis in either lower extremity. POS: [facility]
--- NOTE | 2018-04-18 17:41 | CON ---
DATE OF CONSULTATION: 04/18/2018 REASON FOR CONSULTATION: Need for anticoagulation and a fall. HISTORY OF PRESENT ILLNESS: Mr. Hoskins is a very pleasant 77-year-old white female who comes to the hospital for a fall. She fell, hit the back of her head. She had a large laceration that was repair ed. She came in to the ER, had a CT of the brain that showed a small subdural hematoma that is not a ffecting her mentation or causing a midline shift or any big issue, it was decided to just monitor he r, but because of this her aspirin and her Xarelto were stopped. She has a history of coronary arter y disease. She had a coronary artery bypass grafting with a ROSS to the LAD and a vein to a diagonal in November of this year. This became complicated a month later she came to the hospital and was diagno sed with bilateral pulmonary embolisms and was started on Xarelto at that time. She tells me that aaron larson actually tripped on a loose rug and did not really have syncope or was unsteady on her feet. This was just not being careful. Currently, denies any chest pain, tightness, pressure, no shortness of b reath. PAST MEDICAL HISTORY: 1. Coronary artery disease status post CABG as above. 2. Hyperlipidemia. 3. Type 2 diabetes. 4. Hypothyroidism. 5. Postoperative PE secondary to DVTs, on Xarelto. 6. Chronic lymphocytic leukemia diagnosed several years ago, treated conservatively followed by Dr. Christensen. PAST SURGICAL HISTORY: 1. Tubal ligation. 2. Cataract surgery. 3. Foot surgery. 4. A 2-vessel CABG in November of this year. ROSS to the LAD and a vein to diagonal. SOCIAL HISTORY: No alcohol, tobacco or drugs. FAMILY HISTORY: Noncontributory. REVIEW OF SYSTEMS: Twelve-point review of systems was done and is all negative unless stated in the history of present illness. OUTPATIENT MEDICATIONS: Include: 1. Multivitamin daily. 2. Ferrous sulfate. 3. Zetia 10 mg a day. 4. Coreg 3.125 mg b.i.d. 5. Lipitor 40 mg at bedtime. 6. Glipizide. 7. Xarelto 15 mg a day. 8. Lisinopril 2.5 mg b.i.d. 9. Levothyroxine 75 mcg a day. 10. Probiotic. 11. Metformin 500 mg at bedtime. ALLERGIES: 1. DIAZEPAM. 2. MELOXICAM. 3. SULFA DRUGS. 4. TOMATO, that will give her hives. PHYSICAL EXAMINATION: VITAL SIGNS: Temperature 98.4, pulse 81, respiration rate 16, satting 94% on room air, blood pressur e 147/74. GENERAL: Awake, alert, oriented x3, in no distress. HEENT: Normocephalic, atraumatic. NECK: Supple. LUNGS: Clear. CARDIOVASCULAR: S1, S2, no S3, S4, no murmurs. ABDOMEN: Soft, positive bowel sounds. EXTREMITIES: No edema. SKIN: Warm and dry. LABORATORY WORK: Reviewed. CBC is unremarkable. Chemistry is unremarkable. Glucose was 131. Calc ium was 9.5. Coags: INR is 1.2, albumin of 3.9. Normal LFTs. CT of the brain was reviewed. ASSESSMENT AND PLAN: 1. Status post fall from her own height. 2. Subdural hematoma. 3. Postoperative DVTs and PEs. 4. Status post coronary artery bypass graft x2 in November of this year. PLAN: 1. Absolutely hold Xarelto and aspirin until deemed safe to restart from the perspective of Neurosur jackson. I would err on the side of caution with inserting an IVC filter in her for the next 2-3 weeks while she is off of any anticoagulation or antiplatelet therapy. 2. Continue other medications for her ischemic cardiomyopathy when she has normal EF. Thank you for allowing us to participate in the care of your patient. We will follow.
--- NOTE | 2018-04-18 19:00 | PRG ---
DATE OF SERVICE: 04/18/2018 SUBJECTIVE: Ms. Hoskins is a 77-year-old woman who suffered a small intrafalcine subdural hematoma following a ground level fall yesterday. The patient has a history of venous thromboembolism requiring Xarelto for anticoagulation. Today, she has a Polson coma scale of 15. She denies any headaches, syncope, nausea or vomiting. Repeat CT scan of the brain reveals stable tiny intracranial hemorrhage. She has no mass effects present. OBJECTIVE: VITAL SIGNS: Includes blood pressure 145/78, pulse 73, respiratory rate is 14, temperature is 98.1 degrees Fahrenheit, oxygen saturation is 94% on room air. HEENT: Pupils equal, round and reactive to light and accommodation. HEART: Reveals regular rate and rhythm. No murmurs or gallops auscultated. CHEST: Clear to auscultation bilaterally. Breathing is regular and unlabored. ABDOMEN: Soft, nontender, nondistended. EXTREMITIES: Reveals 2+ radial and pedal pulses bilaterally. NEUROLOGIC: Reveals no focal deficits present. IMPRESSION: 1. Post injury day number 1 status post ground level fall. 2. Stable mild traumatic brain injury with a small intrafalcine subdural hematoma. PLAN: At the recommendation of Neurosurgery, the patient is to stay off any form of anticoagulation for the next 2 weeks including Xarelto. Given significant history of venous thromboembolism, we asked Cardiovascular Surgery to evaluate the patient for IVC filter placement. Both findings and plan discussed with the patient who indicates understanding of the information given. I have answered all her questions. ROSALIND
--- NOTE | 2018-04-18 19:03 | CON ---
DATE OF CONSULTATION: 04/18/2018 REQUESTING PHYSICIAN: Dr. Avila. CHIEF COMPLAINT: Head injury. HISTORY OF PRESENT ILLNESS: The patient is a 77-year-old woman who in mid-November of this year underwen t coronary artery bypass grafting and in late December presented with shortness of breath and was found t o have a pulmonary embolism. At that time, she was started on anticoagulation. She tripped and fell going to the bathroom, striking her head on the shower still hard enough to break the shower stall. She had a scalp laceration in the back of her head and CT scanning demonstrated a small subdural hem atoma in the interhemispheric fissure anteriorly with no apparent neurologic compromise. PAST MEDICAL HISTORY: Significant for her coronary artery disease, diabetes. PAST SURGICAL HISTORY: Her postop CABG course was complicated by atrial fibrillation. HOME MEDICATIONS: Zetia, Coreg, Lipitor, glipizide; Xarelto, the last dose of which was the evening before admission; lisinopril, Synthroid, metformin, probiotics and vitamin supplements. ALLERGIES: She has multiple allergies or adverse reactions including VALIUM, MOBIC, SULFONAMIDES and she had nausea associated with AMIODARONE. FAMILY HISTORY: Significant for hypercholesterolemia in multiple family members. REVIEW OF SYSTEMS: Negative for any focal neurologic deficits, any chest pain, any shortness of mack th. PHYSICAL EXAMINATION: GENERAL: She has a clean bandage wrapped around her head. She is alert and oriented. VITAL SIGNS: Temperature is 98.8, heart rate is 85, blood pressure 151/83, room air O2 sats are 94%. LUNGS: Clear breath sounds. CARDIOVASCULAR: Regular rate and rhythm. Well-healed surgical scars from CABG. No leg swelling. IMAGING: The CT scan of the chest that documented her pulmonary embolism in December showed her renal ve ins coming into the inferior vena cava at roughly the same level what appears to represent upper leve l of L2 or the lower level of L1 where the vena cava measures about 2 cm. IMPRESSION AND RECOMMENDATIONS: History of pulmonary embolism roughly 3-1/2 months ago, but she now has a clear-cut contraindication to anticoagulation and will plan on permanent IVC filter placement.
[2018-04-19] MEDS ORDERED: Lidocaine 1% (PF) 30 ML VIAL ONE (08:16)
[2018-04-19] MEDS: Famotidine/PF 20 mg/2ml Vial SLOW IVP SCH (08:17)
[2018-04-19] MEDS ORDERED: Iopamidol 370 76% 50 ML VIAL FS ONE (10:44)
--- NOTE | 2018-04-19 11:04 | OP ---
DATE OF PROCEDURE: 04/19/2018 PROCEDURES PERFORMED: [employer] inferior vena cava filter placement with ultrasonographic and fluoros copic guidance and inferior vena cavography. PREOPERATIVE DIAGNOSIS: History of pulmonary embolism with contraindication to anticoagulation. POSTOPERATIVE DIAGNOSIS: History of pulmonary embolism with contraindication to anticoagulation. SURGEON: Josh Henderson M.D. ANESTHESIA: 1% lidocaine local anesthesia. INDICATIONS: The patient is a 77-year-old woman who a little over 3 months ago had a pulmonary embol ism and was started on anticoagulation. She recently tripped and fell, striking her head and was fou nd to have a small subdural hematoma. A vena cava filter is now being placed for PE prophylaxis as s he is now being taken off of her anticoagulation well prior to the planned course of therapy. FINDINGS: Compressible femoral vein slightly posterior to the femoral artery. The renal veins came off at about the level of the lower portion of L1. The superior tip of the device was positioned in between L1 and L2. NARRATIVE REPORT: After informed consent was obtained, the patient was taken to the equipment operator/laborer and pos itioned on the cath table. Her groins were prepped and draped in sterile fashion. She was comfortab le without the use of sedation and tolerated manipulations comfortably. Ultrasonography was used to document the arterial and venous anatomy in the right groin and to demonstrate compressibility of the femoral vein. A 1% lidocaine was used to infiltrate the skin and subcutaneous tissues at that level and then a large bore needle was used to cannulate the femoral vein under ultrasonographic guidance. A wire was placed into the vena cava under fluoroscopic guidance. Through that needle, the tract w as dilated and an introducer sheath was placed through the fenestrated dilator. Contrast was injecte d to radiographically document the confluence of the renal veins with the inferior cava. The dilator was removed and the tip of the introducer sheath was positioned at the lower level of L1. The devic e was advanced through the sheath under fluoroscopic guidance and then the device was deployed by sim ultaneously withdrawing the sheath and advancing the device so that the tip of the device superiorly lay in between L1 and L2. The introducer sheath was removed and hemostasis was achieved with direct pressure. The wound was dressed and the patient was taken to the recovery observation area in good c ondition.
[2018-04-19] MEDS ORDERED: HYDROcodone/Acetaminophen 5/325 mg Tablet PO PRN ×2 (11:57)
[2018-04-19 12:42] VITALS: BP 134/76; TEMP 98.2
--- NOTE | 2018-04-20 03:21 | DIS ---
DATE OF ADMISSION: 04/18/2018 DATE OF DISCHARGE: 04/19/2018 ADMITTING PHYSICIAN: Dr. Harmon. DISCHARGING PHYSICIAN: Dr. Avila. CONSULTANTS: 1. Dr. Stewart with neurosurgery. 2. Dr. Burns with cardiology. 3. Dr. Henderson with cardiovascular surgery. DIAGNOSES ON ADMISSION: 1. Status post ground level fall. 2. Small interhemispheric subdural hematoma. 3. History of venous thromboembolism. PROCEDURE PERFORMED: Placement of inferior vena cava filter today by Dr. Henderson. HISTORY AND HOSPITAL COURSE: A 77-year-old woman with history of previous venous thromboembolisms an d who was currently on Xarelto for recent pulmonary embolism. Patient fell from a ground level posit ion, striking her head. On 04/17/2018, sustaining a small interhemispheric subdural hematoma. She w as evaluated by the trauma team and seen in consultation by Neurosurgery. Neurosurgery has recommend ed that no anticoagulation for the next [address] scan reveals stable intracranial inj ury. Patient was seen by Cardiology and we both agreed that the patient's risk for venous thromboemb olism was great of anticoagulation. To this end, patient was seen in consultation by Dr. Henderson from cardiovascular surgery and inferior vena cava filter was placed today. Postprocedure, patient is doing well. She has remained hemodynamically stable and afebrile through this hospitalization. Her vital signs today includes blood pressure 134/76, pulse 76, respiratory rate is 18, temperature 9 8.2 degrees Fahrenheit, oxygen saturation 95% on room air and this is post-procedure. The patient has been tolerating general diet, having normal bowel and urinary function. She has mika ined Sidra coma scale of 15 throughout this hospitalization. She desires to and will be discharged home today with the following instructions: 1. She follows up with Dr. Henderson regarding the inferior vena cava filter. She follows up with Dr. Stewart regarding the traumatic brain injury. She requires no further follow up from this [facility] Surgery standpoint except for as needed. 2. She knows to call Dr. Stewart with any worsening headache, diplopia, or photophobia, any gait im balance or extremity weaknesses. 3. She is to follow up with her primary care physician upon discharge. She is to resume all her pre hospital medication was prescribed by her primary care physician. 4. She is to avoid all anticoagulants including the Xarelto, aspirin, or nonsteroidal anti-inflammat ory agents until she has been released by Neurosurgery. Above instructions given to the patient, who indicates understanding of the information given answer the questions.
--- NOTE | 2018-04-20 04:16 | DIS-2 ---
DATE OF ADMISSION: 04/18/2018 DATE OF DISCHARGE: 04/19/2018 RESIDENT: Darlin Riley MD SUPERVISING ATTENDING: Dr. Avila. CONSULTS: Case management, CV Surgery, Neurosurgery, Cardiology. PROCEDURES: IVC filter placement on 04/19/2018. PRIMARY DIAGNOSIS: Small subdural hematoma. 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 DISCHARGE MEDICATIONS: 1. Metformin 500 mg oral at bedtime. 2. Glipizide 0.5 tab oral every morning. 3. Women's daily formula multivitamin 1 tab oral daily. 4. Probiotic 1 each oral daily. 5. Lipitor 40 mg oral at bedtime. 6. Coreg 3.125 mg oral twice daily with meals. 7. Zetia 10 mg oral daily. 8. Synthroid 75 mcg oral at 0600 hours. 9. Lisinopril 2.5 mg oral twice daily. DISCONTINUED MEDICATIONS: Xarelto. HISTORY OF PRESENT ILLNESS AND HOSPITAL COURSE: This is a 77-year-old female who fell in her bathroo m after getting tangled up in her dog's blanket. The patient struck her head on the bathtub. No los s of consciousness reported. GCS remained 15 throughout her stay. The patient found to have small s ubdural hematoma with head laceration. The patient's case was complicated by Xarelto use since 11/30 17 for bilateral PE, status post bypass surgery. The patient's laceration was repaired with francesca. Neurosurgery consulted and recommended 1-hour neuro checks with repeat CT on day 2, which was large ly unchanged. Head of the bed was kept elevated to 30 degrees with strict blood pressure control. N eurosurgery also recommended to hold anticoagulants for 2 weeks. CV Surgery was then consulted for I VC filter placement as the patient would not be a candidate for anticoagulants. IVC filter placed on 04/19/[address] Burns consulted who agreed with holding Xarelto and current m anagement. On the day of discharge, the patient's plan was discussed with Dr. Avila who is in [facility] ent. The patient examined by me and the patient's questions were answered and she agreed with the pl an. DISPOSITION: Stable. DISCHARGE INSTRUCTIONS: 1. Location: Home. 2. Diet: Regular. 3. Activity: Ad lulu with PT/OT. 4. Followup: Follow up with PCP within 2 weeks, with Dr. Burns within 2 weeks, and Dr. Henderson within 2 weeks.
== END 2018-04-19 15:19 | disposition home or self-care (01) | DRG 41 ==
LOC: ERS 17:14 → SURG A 20:23 → OBSVTOIN 04-18 15:53
PROVIDERS: ADMIT Surgery; ATTEND Surgery
PROC: 0HQ0XZZ Repair Scalp Skin, External Approach (ICD-10-PCS; 2018-04-18)
PROC: 06H03DZ Insertion of Intraluminal Device into Inferior Vena Cava, Percutaneous Approach (ICD-10-PCS; principal; 2018-04-19)
PROC: B5191ZA Fluoroscopy of Inferior Vena Cava using Low Osmolar Contrast, Guidance (ICD-10-PCS; 2018-04-19)
DX: S06.5X0A Traumatic subdural hemorrhage without loss of consciousness, initial encounter (principal); C91.10 Chronic lymphocytic leukemia of B-cell type not having achieved remission; W01.198A Fall on same level from slipping, tripping and stumbling with subsequent striking against other object, initial encounter; Y92.012 Bathroom of single-family (private) house as the place of occurrence of the external cause; Z86.711 Personal history of pulmonary embolism; Z79.01 Long term (current) use of anticoagulants; I25.10 Atherosclerotic heart disease of native coronary artery without angina pectoris; E78.5 Hyperlipidemia, unspecified; E03.9 Hypothyroidism, unspecified; Z86.718 Personal history of other venous thrombosis and embolism; Z95.1 Presence of aortocoronary bypass graft; Z79.82 Long term (current) use of aspirin; Z88.5 Allergy status to narcotic agent; Z88.2 Allergy status to sulfonamides; Z88.8 Allergy status to other drugs, medicaments and biological substances; Z91.018 Allergy to other foods; S01.01XA Laceration without foreign body of scalp, initial encounter; E11.9 Type 2 diabetes mellitus without complications
CPT/HCPCS: 36415; 36416; 37191; 70450; 76942; 80048; 85025; 93970; 99285; C1769; G0390; J1644; J2001; S0028

== ENCOUNTER 2021-02-25 12:36 | Outpatient (CLI) | payer MEDICARE | END 2021-02-25 12:37 | disposition home or self-care (01) | LOC: BICMAMMO 12:36 | PROVIDERS: ATTEND Internal Medicine | DX: Z12.31 Encounter for screening mammogram for malignant neoplasm of breast (principal); Z80.3 Family history of malignant neoplasm of breast; N64.89 Other specified disorders of breast | CPT/HCPCS: 77063; 77067 ==

== ENCOUNTER 2021-03-02 09:51 | Outpatient (CLI) | payer MEDICARE | END 2021-03-02 09:52 | disposition home or self-care (01) | LOC: BICMAMMO 09:51 | PROVIDERS: ATTEND Internal Medicine | DX: R92.2 Inconclusive mammogram (principal) | CPT/HCPCS: 76642; 77065; G0279 ==